=== PATIENT | male | born 1975 | race Caucasian/White ===

== ENCOUNTER 2016-12-13 10:56 | Emergency (ER) | payer SELFPAY ==
[2016-12-13 11:06] VITALS: BP 128/70; PULSE 66; TEMP 98.2; BMI 20.5
--- NOTE | 2016-12-13 11:33 | PDOC ---
History of Present Illness - General Chief Complaint: Weakness Stated Complaint: WEAKNESS Time Seen by Provider: 12/13/16 11:17 History Source: Patient Exam Limitations: No Limitations - History of Present Illness Initial Comments: 12/13/16 11:30 CC severe fatigue x 2-3 day; no NVD; no Fever Timing/Duration: getting worse Severity: mild Associated Symptoms: reports: cough, loss of appetite, malaise. denies: chest pain, diaphoresis, fever/chills, headaches, nausea/vomiting, shortness of breath Past History - Past Medical History Allergies/Adverse Reactions: Allergies Allergy/AdvReac Type Severity Reaction Status Date / Time Penicillins AdvReac Verified 12/13/16 11:02 Asthma: Yes GI Disorders: Yes (gerd) Psychiatric Problems: Yes (SUICIDE ATTEMPT, PTSD) - Immunization History Immunization Up to Date: Yes - Psycho/Social/Smoking Cessation Hx Anxiety: No Suicidal Ideation: No (NOT NOW) Smoking History: Current every day smoker Have you smoked in the past 12 months: Yes Number of Cigarettes Smoked Daily: 10 Cigars Per Day: 0 Information on smoking cessation initiated: No 'Breaking Loose' booklet given: 04/13/16 Hx Alcohol Use: No Drug/Substance Use Hx: No Substance Use Type: Marijuana Review of Systems - Review of Systems Constitutional: Yes: Malaise, Weakness. No: Chills, Fever HEENTM: No: Cataracts, Ear Pain, Throat Pain, Difficulty Swallowing Respiratory: Yes: Cough. No: SOB at Rest, Stridor, Wheezing Cardiac (ROS): Yes: Symptoms Reported ABD/GI: No: Symptoms Reported *Physical Exam - Vital Signs Last Vital Signs Temp Pulse Resp BP Pulse Ox 98.2 F 66 20 128/70 98 12/13/16 11:03 12/13/16 11:03 12/13/16 11:03 12/13/16 11:03 12/13/16 11:03 - Physical Exam General Appearance: No: Appropriately Dressed, Apparent Distress HEENT: positive: Tonsillar Exudate, Tonsillar Erythema, Nasal Congestion, Rhinorrhea. negative: TMs Normal, TM Bulging, TM Dull, TM Erythema, Lesions Neck: positive: Rigid, Lymphadenopathy (R), Lymphadenopathy (L). negative: Tender, Supple Respiratory/Chest: positive: Chest Tender, Lungs Clear, Normal Breath Sounds. negative: Rhonchi, Stridor, Wheezing Cardiovascular: positive: Regular Rhythm, Regular Rate. negative: S1, S2, Murmur ED Treatment Course - LABORATORY CBC & Chemistry Diagram: 12/13/16 11:26 12/13/16 11:26 Medical Decision Making - Medical Decision Making 12/13/16 12:30 advil 40-0mg for fever and pain *DC/Admit/Observation/Transfer Diagnosis at time of Disposition: Acute streptococcal pharyngitis - Discharge Dispostion Disposition: HOME Condition at time of disposition: Stable Admit: No - Patient Instructions Additional Instructions: lots of fluids; gargle; advil for pain - Post Discharge Activity Work/School Note: Back to Work
[2016-12-13 12:00] LABS: BASOPHIL 0.9 % (0-2.0); EOSINOPHIL 0.5 % (0-4.5); MCH 32.5 pg (25.7-33.7); MCHC 33.2 g/dl (32.0-35.9); MEAN CELL VOLUME 98.1 fl (80-96); MEAN PLT VOLUME 7.8 fl (7.5-11.1); NEUTROPHILS 78.4 % (42.8-82.8); PLATELET COUNT 160 K/MM3 (134-434); RDW 13.3 % (11.9-15.9); WHITE BLOOD COUNT 13.9 K/mm3 (4.0-10.0)
[2016-12-13 12:24] LABS: ANION GAP 9 (8-16); CO2 26 mmol/L (21-32); CREATININE 0.8 mg/dL (0.7-1.3); GLUCOSE,RANDOM 85 mg/dL (74-106)
== END 2016-12-13 12:34 | disposition home or self-care (01) ==
LOC: JERFT 10:56
DX: J02.0 Streptococcal pharyngitis (principal); K21.9 Gastro-esophageal reflux disease without esophagitis; J45.909 Unspecified asthma, uncomplicated; F43.10 Post-traumatic stress disorder, unspecified; F17.210 Nicotine dependence, cigarettes, uncomplicated
CPT/HCPCS: 36415; 80048; 85025; 87070; 87077; 87430; 99281-25

== ENCOUNTER 2017-04-05 00:31 | Emergency (ER) | payer SELFPAY ==
--- NOTE | 2017-04-05 01:09 | PDOC ---
History of Present Illness - General Chief Complaint: Sore Throat Stated Complaint: SWOLLEN GLANDS Time Seen by Provider: 04/05/17 01:05 History Source: Patient Exam Limitations: No Limitations - History of Present Illness Initial Comments: 04/05/17 01:07 This is a 41-year-old male who comes in complaining of 12 hours of a sore throat. Patient denies any fever, chills, shortness of breath, neck pain or any other complaints. Patient says he is otherwise healthy and takes no medications on a regular basis. Patient denies any cough, congestion. PAST MEDICAL HISTORY: no significant history PAST SURGICAL HISTORY: no significant history FAMILY HISTORY: no pertinant history SOCIAL HISTORY: Pt lives with family and is employed. MEDICATIONS: reviewed ALLERGIES: As per nursing notes Review of Systems General: No fevers or chills, no weakness, no weight loss HEENT: No change in vision. No sore throat,. No ear pain CardioVascular: No chest pain or shortness of breath Respiratory:No cough, or wheezing. Gastrointestinal: no nausea, vomitting, diarrhea or constipation, No rectal bleeding Genitourinary: No dysuria, hematuria, or frequency Musculoskeletal: No joint or muscle pain or swelling Neurologic: No headache, vertigo, dizziness or loss of consciousness Psychiatric: nor depression Skin: No rashes or easy bruising Endocrine: no increased thirst or abnormal weight change Allergic: no skin or latex allergy All other systems reviewed and normal GENERAL: The patient is awake, alert, and fully oriented, in no acute distress. HEAD: Normal with no signs of trauma. THROAT:There is some mild erythema of the posterior oropharynx, tonsils are otherwise normal there is no exudate NECK: There is no submandibular lymphadenopathy then neck is supple and there is no meningeal signs. EYES: Pupils equal, round and reactive to light, extraocular movements intact, sclera anicteric, conjunctiva clear. EXTREMITIES: Normal range of motion, no edema. NEUROLOGICAL: Normal speech, normal gait. grossly intact PSYCH: Normal mood, normal affect. SKIN: Warm, Dry, normal turgor, no rashes or lesions noted. 04/05/17 01:09 Assessment and plan: This is a healthy 41-year-old male who comes in complaining of 12 hours of sore throat. Patient did have some mild erythema on exam otherwise his exam was normal including no fever, no lymphadenopathy and no upper respiratory tract symptoms. Patient was given Tylenol for his sore throat and told he could continue the Tylenol as needed for pain. Patient discharged and will follow-up with his doctor. Past History - Past Medical History Allergies/Adverse Reactions: Allergies Allergy/AdvReac Type Severity Reaction Status Date / Time Penicillins AdvReac Verified 04/05/17 00:48 Home Medications: Ambulatory Orders NK [No Known Home Medication] 04/05/17 Asthma: Yes GI Disorders: Yes (gerd) Psychiatric Problems: Yes (SUICIDE ATTEMPT, PTSD) - Immunization History Immunization Up to Date: Yes - Suicide/Smoking/Psychosocial Hx Smoking History: Current every day smoker Have you smoked in the past 12 months: Yes Number of Cigarettes Smoked Daily: 20 Cigars Per Day: 0 'Breaking Loose' booklet given: 04/13/16 Hx Alcohol Use: No Drug/Substance Use Hx: No Substance Use Type: Marijuana *DC/Admit/Observation/Transfer Diagnosis at time of Disposition: Pharyngitis Qualifiers: Pharyngitis/tonsillitis etiology: unspecified etiology Qualified Code(s): J02.9 - Acute pharyngitis, unspecified - Discharge Dispostion Disposition: HOME Condition at time of disposition: Good - Referrals - Patient Instructions Additional Instructions: Tylenol or Motrin as needed for pain or fevers Return to the emergency department immediately with ANY new, persistent or worsening symptoms. Continue any medications as previously prescribed by your physician. You should follow up with your primary doctor as soon as possible regarding today's emergency department visit. . Please make sure your doctor reviews the results of your emergency evaluation. Thank you for coming to the Emergency Department today for your care. It was a pleasure to see you today. Please note that your evaluation is INCOMPLETE until you follow-up with your doctor. . - Post Discharge Activity
[2017-04-05 02:01] VITALS: BP 100/67; PULSE 92; TEMP 98.9; BMI 30.8
[2017-04-05] MEDS ORDERED: ACETAMINOPHEN 325 MG TABLET (FP) PO ONE (02:01)
[2017-04-05] MEDS ORDERED: ACETAMINOPHEN 325 MG TABLET (FP) ONE (02:03)
== END 2017-04-05 02:16 | disposition home or self-care (01) ==
LOC: FER 00:31
DX: J02.9 Acute pharyngitis, unspecified (principal); J45.909 Unspecified asthma, uncomplicated; K21.9 Gastro-esophageal reflux disease without esophagitis; F17.210 Nicotine dependence, cigarettes, uncomplicated; F43.10 Post-traumatic stress disorder, unspecified
CPT/HCPCS: 99281-25

== ENCOUNTER 2017-04-07 15:27 | Emergency (ER) | payer SELFPAY ==
[2017-04-07 15:45] VITALS: BP 114/58; PULSE 90; TEMP 98.3; BMI 21.2
--- NOTE | 2017-04-07 15:46 | PDOC ---
Rapid Medical Evaluation Time Seen by Provider: 04/07/17 15:41 Medical Evaluation: Allergies Allergy/AdvReac Type Severity Reaction Status Date / Time Penicillins AdvReac Verified 04/05/17 00:48 04/07/17 15:41 I performed a brief in-person evaluation of this patient. The patient presents with a chief complaint of: sorethroat, weakness and toothache x 3 days Patient states seen in 2 other emergency room, where they found negative strep and influenza swabs. States feeling better but with tooth infection and decrease appetite. Pertinent physical exam findings: NAD no swelling of face, speech clear unlabored breathing The patient will proceed to the Ed for further evaluation
--- NOTE | 2017-04-07 16:42 | PDOC ---
History of Present Illness - General Chief Complaint: Lightheaded Stated Complaint: WEAK/DIZZY/SORE THROAT Time Seen by Provider: 04/07/17 15:41 History Source: Patient Exam Limitations: No Limitations - History of Present Illness Initial Comments: 04/07/17 16:39 Patient is a [41-year-old male with history of depression, asthma, GERD. Patient here for evaluation of dental decay and pain to the left lower teeth, recently had a sore throat, was strep and influenza tested and negative. Was seen in three emergency rooms over the last four days. Is requesting antibiotics for tooth pain and abscess. Denies fever. No difficulty swallowing , denies chest pain or shortness of breath ] Past Medical History: [Denies]. Allergies: No known allergies Medications: [See medication list] Family History: Non-contributory Social History: Denies smoking, alcohol use, or IVDU Review of Systems GENERAL/CONSTITUTIONAL: [No fever or chills. No weakness. No weight change.] HEAD, EYES, EARS, NOSE AND THROAT: [No change in vision. No ear pain or discharge. No sore throat. Dental decay, fractured tooth with erythematous gumline at left lower jaw. ] CARDIOVASCULAR: [No chest pain or shortness of breath.] RESPIRATORY: [No cough, wheezing, or hemoptysis.] GASTROINTESTINAL: [No nausea, vomiting, diarrhea or constipation. No rectal bleeding.] GENITOURINARY: [No dysuria, frequency, or change in urination.] MUSCULOSKELETAL: [No joint or muscle swelling or pain. No neck or back pain.] SKIN AND BREASTS: [No rash or easy bruising.] NEUROLOGIC: [No headache, vertigo, loss of consciousness, or loss of sensation.] PSYCHIATRIC: [No depression or anxiety.] ENDOCRINE: [No increased thirst. No abnormal weight change.] HEMATOLOGIC/LYMPHATIC: [No anemia, easy bleeding, or history of blood clots.] ALLERGIC/IMMUNOLOGIC: [No hives or skin allergy. No latex allergy.] Physical Exam: GENERAL: [The patient is awake, alert, and fully oriented, in no acute distress. ] HEAD: [Normal with no signs of trauma.] EYES: [Pupils equal, round and reactive to light, extraocular movements intact, sclera anicteric, conjunctiva clear.] ENT: [Ears normal, nares patent, oropharynx clear without exudates. Moist mucous membranes. No uvula deviation. Dental decay, cracked 18, 19, 20. Has dental putty in place, erythema to the gumline. ] NECK: [Normal range of motion, supple without lymphadenopathy, JVD, or masses.] LUNGS: [Breath sounds equal, clear to auscultation bilaterally. No wheezes, and no crackles.] HEART: [Regular rate and rhythm, normal S1 and S2 without murmur, rub or gallop. ] ABDOMEN: [Soft, nontender, normoactive bowel sounds. No guarding, no rebound. No masses. No bruising or abrasions] MUSCULOSKELETAL: [Normal range of motion, no edema. No clubbing or cyanosis. No cords, erythema, or tenderness. No CVA Tenderness with fist.] NEUROLOGICAL: [Cranial nerves II through XII grossly intact. Normal speech, normal gait.] SKIN: [Warm, Dry, normal turgor, no rashes or lesions noted.] Past History - Past Medical History Allergies/Adverse Reactions: Allergies Allergy/AdvReac Type Severity Reaction Status Date / Time Penicillins AdvReac Verified 04/07/17 15:41 Home Medications: Ambulatory Orders Clindamycin [Cleocin -] 300 mg PO TID #30 capsule 04/07/17 Asthma: Yes COPD: No GI Disorders: Yes (gerd) Psychiatric Problems: Yes (SUICIDE ATTEMPT, PTSD) - Immunization History Immunization Up to Date: Yes - Suicide/Smoking/Psychosocial Hx Smoking History: Current every day smoker Have you smoked in the past 12 months: Yes Number of Cigarettes Smoked Daily: 20 Cigars Per Day: 0 Information on smoking cessation initiated: No 'Breaking Loose' booklet given: 04/13/16 Hx Alcohol Use: No Drug/Substance Use Hx: No Substance Use Type: Marijuana *Physical Exam - Vital Signs Last Vital Signs Temp Pulse Resp BP Pulse Ox 98.3 F 90 19 114/58 99 04/07/17 15:42 04/07/17 15:42 04/07/17 15:42 04/07/17 15:42 04/07/17 15:42 Medical Decision Making - Medical Decision Making 04/07/17 19:37 A/P : Patient with significant dental decay, there is fractured tooth to left lower side 18, 19 and 20 with dental putty in place erythema gumline cannot rule out abscess will DC patient on clindamycin, Tylenol and Motrin for pain. I discussed the physical exam findings, ancillary test results and final diagnoses with the patient. I answered all of the patient's questions. The patient was satisfied with the care received and felt comfortable with the discharge plan and treatment plan. The patient will call to arrange follow-up and will return to the Emergency Department with any new, persistent or worsening symptoms. *DC/Admit/Observation/Transfer Diagnosis at time of Disposition: Dental abscess, Dental decay - Discharge Dispostion Disposition: HOME Condition at time of disposition: Stable Admit: No - Prescriptions Prescriptions: Clindamycin [Cleocin -] 300 mg PO TID #30 capsule - Referrals - Patient Instructions Printed Discharge Instructions: DI for Tooth Decay Additional Instructions: Please follow-up with your dentist may take Motrin as needed for pain If any difficulty swallowing, fever, or any other concerns return to the ER - Post Discharge Activity
== END 2017-04-07 16:48 | disposition home or self-care (01) ==
LOC: JER 15:27
DX: K02.9 Dental caries, unspecified (principal); K04.7 Periapical abscess without sinus
CPT/HCPCS: 99281-25

== ENCOUNTER 2017-11-19 17:06 | Emergency (ER) | payer SELFPAY ==
[2017-11-19 17:42] VITALS: BP 99/70; PULSE 106; TEMP 99.9; BMI 19.2
[2017-11-19] MEDS ORDERED: SODIUM CHLORIDE 1,000 ML IV STA (18:03)
[2017-11-19] MEDS ORDERED: ONDANSETRON 4 MG/2 ML VIAL IVPUSH STA (18:03)
[2017-11-19 19:14] LABS: BASO % 0.4 % (0-2.0); EOS % 1.2 % (0-4.5); HEMATOCRIT 49.1 % (35.4-49); HEMOGLOBIN 16.5 GM/dL (11.7-16.9); LYMPH % 12.2 % (8-40); MCHC 33.6 g/dl (32.0-35.9); MEAN CELL VOLUME 98.1 fl (80-96); MEAN PLT VOLUME 7.6 fl (7.5-11.1); MONO % 8.5 % (3.8-10.2); NEUT % 77.7 % (42.8-82.8); PLATELET COUNT 156 K/MM3 (134-434); RDW 13.5 % (11.9-15.9); WHITE BLOOD COUNT 8.4 K/mm3 (4.0-10.0)
[2017-11-19 19:33] LABS: ALBUMIN 3.7 g/dl (3.4-5.0); ANION GAP 6 (8-16); BILIRUBIN,TOTAL 0.6 mg/dL (0.2-1.0); BLOOD UREA NITROGEN 14 mg/dL (7-18); CALCIUM 8.6 mg/dL (8.5-10.1); CHLORIDE 106 mmol/L (98-107); CO2 29 mmol/L (21-32); CREATININE 0.8 mg/dL (0.7-1.3); GLUCOSE,RANDOM 76 mg/dL (74-106); LIPASE 96 U/L (73-393); POTASSIUM 4.5 mmol/L (3.5-5.1); SGOT/AST 19 U/L (15-37); SGPT/ALT 24 U/L (12-78); SODIUM 141 mmol/L (136-145)
[2017-11-19 19:34] LABS: ALK PHOS 77 U/L (45-117)
--- NOTE | 2017-11-19 19:45 | PDOC ---
History of Present Illness <SarabjitNormajhon Kelly - Last Filed: 11/19/17 19:44> - General History Source: Patient Exam Limitations: No Limitations - History of Present Illness Initial Comments: 11/19/17 20:27 The patient is a 42 year old male with a significant past medical history of asthma, GERD, PTSD, depression who presents to the emergency department complaining of 1 day of vomiting and diarrhea. The patient reports 3 episodes of non-bloody vomiting yesterday with none today and 10 episodes of watery diarrhea. He reports taking Pepto-bismol today which subsided his GI symptoms, and now has a normal appetite. Patient endorses nausea and fever with chills. The patient notes that he has been walking outside more than usual since recently losing his car. He also notes that he does not have a healthy diet, often eats fast food although he has a sensitive stomach. The patient reports sick contact at home, girlfriend has similar symptoms with the exception of diarrhea. Denies chest pain, shortness of breath, headache, and dizziness. Denies urinary/bowel changes. Allergies: penicillins Past surgical history: none reported Social history: 20 years of daily marijuana use. Tobacco use (1 ppd). PCP: unknown <Isa Deluca - Last Filed: 11/19/17 20:36> - General Chief Complaint: Nausea/Vomiting Stated Complaint: NAUSEA AND VOMITING Time Seen by Provider: 11/19/17 17:43 Past History - Past Medical History Asthma: Yes COPD: No GI Disorders: Yes (gerd) Psychiatric Problems: Yes (SUICIDE ATTEMPT, PTSD) - Immunization History Immunization Up to Date: Yes - Suicide/Smoking/Psychosocial Hx Smoking History: Current every day smoker Have you smoked in the past 12 months: Yes Number of Cigarettes Smoked Daily: 20 Cigars Per Day: 0 Information on smoking cessation initiated: No 'Breaking Loose' booklet given: 04/13/16 Hx Alcohol Use: No Drug/Substance Use Hx: No Substance Use Type: Marijuana <Norma Whipple - Last Filed: 11/19/17 19:44> <Isa Deluca - Last Filed: 11/19/17 20:36> - Past Medical History Allergies/Adverse Reactions: Allergies Allergy/AdvReac Type Severity Reaction Status Date / Time Penicillins AdvReac Verified 11/19/17 17:42 Home Medications: Ambulatory Orders NK [No Known Home Medication] 11/19/17 Review of Systems - Review of Systems Able to Perform ROS?: Yes Comments:: 11/19/17 20:32 CONSTITUTIONAL: Present: subjective fever, chills Absent: fatigue EYES: Absent: visual changes ENT: Absent: ear pain, no sore throat CARDIOVASCULAR: Absent: chest pain, no palpitations RESPIRATORY: Absent: cough, no SOB GI: Present: nausea, vomiting, diarrhea Absent: abdominal pain, no constipation GENITOURINARY: Absent: dysuria, no frequency, no hematuria MUSKULOSKELETAL: Absent: back pain, no arthralgia, no myalgia SKIN: Absent: rash NEURO: Absent: headache <Isa Deluca - Last Filed: 11/19/17 20:36> *Physical Exam - Vital Signs Last Vital Signs Temp Pulse Resp BP Pulse Ox 99.9 F H 106 H 16 99/70 99 11/19/17 17:10 11/19/17 17:10 11/19/17 17:10 11/19/17 17:10 11/19/17 19:03 <Norma Whipple - Last Filed: 11/19/17 19:44> - Vital Signs Last Vital Signs Temp Pulse Resp BP Pulse Ox 99.9 F H 106 H 16 99/70 99 11/19/17 17:10 11/19/17 17:10 11/19/17 17:10 11/19/17 17:10 11/19/17 19:03 - Physical Exam Comments: 11/19/17 20:34 GENERAL: Well-appearing, well-nourished. No apparent distress. HEENT: Normocephalic, atraumatic. PERRL, EOM intact. CARDIOVASCULAR: Normal S1, S2. Regular rate and rhythm. PULMONARY: Clear to auscultation bilaterally. ABDOMEN: Soft, non-distended, non-tender. EXTREMITIES: Normal ROM in all four extremities. No gross deformities. SKIN: Warm, dry. No rash NEUROLOGICAL: No focal neurological deficits. <Isa Deluca - Last Filed: 11/19/17 20:36> ED Treatment Course - LABORATORY CBC & Chemistry Diagram: 11/19/17 19:00 11/19/17 19:00 - ADDITIONAL ORDERS Additional order review: Laboratory Results 11/19/17 19:00 Sodium 141 Potassium 4.5 Chloride 106 Carbon Dioxide 29 Anion Gap 6 L BUN 14 Creatinine 0.8 Creat Clearance w eGFR > 60 Random Glucose 76 Calcium 8.6 Total Bilirubin 0.6 AST 19 ALT 24 Alkaline Phosphatase 77 Total Protein 7.0 Albumin 3.7 Lipase 96 11/19/17 19:00 RBC 5.00 MCV 98.1 H MCHC 33.6 RDW 13.5 MPV 7.6 Neutrophils % 77.7 Lymphocytes % 12.2 Monocytes % 8.5 Eosinophils % 1.2 D Basophils % 0.4 - Medications Given in the ED: ED Medications Discontinued Medications Generic Name Dose Route Start Last Admin Trade Name Freq PRN Reason Stop Dose Admin Sodium Chloride 1,000 mls @ 1,000 mls/hr 11/19/17 18:03 11/19/17 18:15 Normal Saline - IV 11/19/17 19:02 1,000 mls/hr ASDIR STA Administration Ondansetron HCl 4 mg 11/19/17 18:03 11/19/17 18:30 Zofran Injection IVPUSH 11/19/17 18:04 4 mg ONCE STA Administration <Norma Whipple - Last Filed: 11/19/17 19:44> - LABORATORY CBC & Chemistry Diagram: 11/19/17 19:00 11/19/17 19:00 - ADDITIONAL ORDERS Additional order review: Laboratory Results 11/19/17 19:00 Sodium 141 Potassium 4.5 Chloride 106 Carbon Dioxide 29 Anion Gap 6 L BUN 14 Creatinine 0.8 Creat Clearance w eGFR > 60 Random Glucose 76 Calcium 8.6 Total Bilirubin 0.6 AST 19 ALT 24 Alkaline Phosphatase 77 Total Protein 7.0 Albumin 3.7 Lipase 96 11/19/17 19:00 RBC 5.00 MCV 98.1 H MCHC 33.6 RDW 13.5 MPV 7.6 Neutrophils % 77.7 Lymphocytes % 12.2 Monocytes % 8.5 Eosinophils % 1.2 D Basophils % 0.4 - Medications Given in the ED: ED Medications Discontinued Medications Generic Name Dose Route Start Last Admin Trade Name Freq PRN Reason Stop Dose Admin Sodium Chloride 1,000 mls @ 1,000 mls/hr 11/19/17 18:03 11/19/17 18:15 Normal Saline - IV 11/19/17 19:02 1,000 mls/hr ASDIR STA Administration Ondansetron HCl 4 mg 11/19/17 18:03 11/19/17 18:30 Zofran Injection IVPUSH 11/19/17 18:04 4 mg ONCE STA Administration <Isa Deluca - Last Filed: 11/19/17 20:36> *DC/Admit/Observation/Transfer <Norma Whipple - Last Filed: 11/19/17 19:44> - Attestations Scribe Attestion: 11/19/17 20:35 Documentation prepared by Isa Deluca, acting as medical collections for Norma Whipple MD. <Isa Deluca - Last Filed: 11/19/17 20:36> Diagnosis at time of Disposition: Gastroenteritis - Discharge Dispostion Disposition: HOME Condition at time of disposition: Stable - Patient Instructions Printed Discharge Instructions: DI for Viral Gastroenteritis -- Adult Additional Instructions: please advance your diet as tolerated
== END 2017-11-19 19:52 | disposition home or self-care (01) ==
LOC: JER 17:06
PROC: 3E0337Z Introduction of Electrolytic and Water Balance Substance into Peripheral Vein, Percutaneous Approach (ICD-10-PCS; principal; 2017-11-19)
PROC: 3E033GC Introduction of Other Therapeutic Substance into Peripheral Vein, Percutaneous Approach (ICD-10-PCS; 2017-11-19)
DX: K52.9 Noninfective gastroenteritis and colitis, unspecified (principal); K21.9 Gastro-esophageal reflux disease without esophagitis; J45.909 Unspecified asthma, uncomplicated; F43.10 Post-traumatic stress disorder, unspecified; F32.9 Major depressive disorder, single episode, unspecified; Z91.5 Personal history of self-harm
CPT/HCPCS: 36415; 80053; 83690; 85025; 96361; 96374; 99282-25; J7030

== ENCOUNTER 2018-04-25 01:41 | Emergency (ER) | payer OTHER ==
[2018-04-25 02:20] VITALS: BP 114/79; PULSE 97; TEMP 98; BMI 20.5
--- NOTE | 2018-04-25 03:19 | PDOC ---
History of Present Illness - General Chief Complaint: Toothache Stated Complaint: TOOTHACHE Time Seen by Provider: 04/25/18 03:19 History Source: Patient, Family - History of Present Illness Initial Comments: 04/25/18 03:49 42 year old male c/o tooth decay and pain c/o upper incisor tooth decay c/o no relief with pain motrin at home. patient poor dentition with multiple dental caries. n o facial swelling fever noted 04/25/18 04:53 Past History - Past Medical History Allergies/Adverse Reactions: Allergies Allergy/AdvReac Type Severity Reaction Status Date / Time Penicillins AdvReac Verified 04/25/18 02:20 Home Medications: Ambulatory Orders Amoxicillin/Potassium Clav [Augmentin 875-125 Tablet] 1 each PO BID #20 tablet 04/25/18 Oxycodone HCl/Acetaminophen [Percocet 5-325 mg Tablet] 1 tab PO Q6H PRN #4 tablet MDD 4 04/25/18 Asthma: Yes COPD: No GI Disorders: Yes (gerd) Psychiatric Problems: Yes (SUICIDE ATTEMPT, PTSD) - Immunization History Immunization Up to Date: Yes - Suicide/Smoking/Psychosocial Hx Smoking History: Smoker current status UNK Have you smoked in the past 12 months: No Number of Cigarettes Smoked Daily: 20 Cigars Per Day: 0 Information on smoking cessation initiated: No 'Breaking Loose' booklet given: 04/13/16 Hx Alcohol Use: No Drug/Substance Use Hx: No Substance Use Type: Marijuana *Physical Exam - Vital Signs Last Vital Signs Temp Pulse Resp BP Pulse Ox 98 F 97 H 18 114/79 97 04/25/18 01:41 04/25/18 01:41 04/25/18 01:41 04/25/18 01:41 04/25/18 01:41 - Physical Exam General Appearance: Yes: Appropriately Dressed HEENT: positive: Other (multiple tooth decay) Moderate Sedation - Procedure Monitoring Vital Signs: Procedure Monitoring Vital Signs Temperature 98 F 04/25/18 01:41 Pulse Rate 97 H 04/25/18 01:41 Respiratory Rate 18 04/25/18 01:41 Blood Pressure 114/79 04/25/18 01:41 O2 Sat by Pulse Oximetry (%) 97 04/25/18 01:41 *DC/Admit/Observation/Transfer Diagnosis at time of Disposition: Infected dental caries - Discharge Dispostion Disposition: HOME Condition at time of disposition: Fair - Prescriptions Prescriptions: Amoxicillin/Potassium Clav [Augmentin 875-125 Tablet] 1 each PO BID #20 tablet Oxycodone HCl/Acetaminophen [Percocet 5-325 mg Tablet] 1 tab PO Q6H PRN #4 tablet MDD 4 PRN Reason: Pain Level 6-10 - Referrals - Patient Instructions Printed Discharge Instructions: DI for Tooth Decay Additional Instructions: please follow up with your dentist as soon as possible take ibuprofen for moderate pain take percocet as prescribed for paim - Post Discharge Activity
[2018-04-25] MEDS ORDERED: AMOX TR/POT CLAV 875MG/125MG TABLETS (FP) PO ONE (03:35)
[2018-04-25] MEDS ORDERED: AMOX TR/POT CLAV 875MG/125MG TABLETS (FP) ONE (04:27)
== END 2018-04-25 05:02 | disposition home or self-care (01) ==
LOC: JER 01:41
DX: K02.51 Dental caries on pit and fissure surface limited to enamel (principal); K02.9 Dental caries, unspecified
CPT/HCPCS: 99282-25

== ENCOUNTER 2018-05-05 04:17 | Emergency (ER) | payer OTHER ==
[2018-05-05 04:24] VITALS: BP 142/81; PULSE 98; TEMP 97.6; BMI 26.4
[2018-05-05] MEDS ORDERED: BUPIVACAINE HCL 0.25% 125 MG/50 ML VIAL INF ONE (05:03)
[2018-05-05] MEDS ORDERED: BUPIVACAINE HCL/PF 0.5% (5MG/ML) 10 ML VIAL ONE (05:04)
--- NOTE | 2018-05-05 05:08 | PDOC ---
History of Present Illness - General Chief Complaint: Toothache Stated Complaint: TOOTHACHE History Source: Patient Exam Limitations: No Limitations - History of Present Illness Initial Comments: 05/05/18 05:02 42YOM with h/o dental caries with multiple tooth extractions, seen here in the ED before with dentalgia and dental infections, most recently seen on 04/25/18 and placed on Augmentin which he took and finished, still having pain mild swelling to the area. He denies f/c/n/v/d/c, headache, sinus pain, drooling, lock jaw, nasal drainage, gingival drainage, etc. This tooth is the site of dental caries per his report. He has an appointment to see his dental implant clinic on Monday. States he will not be able to see a dentist on Monday because they only take walk-ins until 10 am and he has a social security appointment at 9 am. Past History - Past Medical History Allergies/Adverse Reactions: Allergies Allergy/AdvReac Type Severity Reaction Status Date / Time Penicillins AdvReac Verified 05/05/18 04:22 Home Medications: Ambulatory Orders Oxycodone HCl/Acetaminophen [Percocet 5-325 mg Tablet] 1 tab PO Q6H PRN #4 tablet MDD 4 04/25/18 Clindamycin HCl 450 mg PO BID #14 capsule 05/05/18 Asthma: Yes COPD: No GI Disorders: Yes (gerd) Psychiatric Problems: Yes (SUICIDE ATTEMPT, PTSD) - Immunization History Immunization Up to Date: Yes - Suicide/Smoking/Psychosocial Hx Smoking History: Never smoked Have you smoked in the past 12 months: No Number of Cigarettes Smoked Daily: 20 Cigars Per Day: 0 Information on smoking cessation initiated: No 'Breaking Loose' booklet given: 04/13/16 Hx Alcohol Use: No Drug/Substance Use Hx: No Substance Use Type: Marijuana Review of Systems - Review of Systems Able to Perform ROS?: Yes *Physical Exam - Vital Signs Last Vital Signs Temp Pulse Resp BP Pulse Ox 97.6 F 98 H 18 142/81 98 05/05/18 04:22 05/05/18 04:22 05/05/18 04:22 05/05/18 04:22 05/05/18 04:22 Moderate Sedation - Procedure Monitoring Vital Signs: Procedure Monitoring Vital Signs Temperature 97.6 F 05/05/18 04:22 Pulse Rate 98 H 05/05/18 04:22 Respiratory Rate 18 05/05/18 04:22 Blood Pressure 142/81 05/05/18 04:22 O2 Sat by Pulse Oximetry (%) 98 05/05/18 04:22 Medical Decision Making - Medical Decision Making 05/05/18 05:05 Pt p/w dental pain and swelling at the site of a decaying tooth #7. Initial Vital Signs Temp Pulse Resp BP Pulse Ox 97.6 F 98 H 18 142/81 98 05/05/18 04:22 05/05/18 04:22 05/05/18 04:22 05/05/18 04:22 05/05/18 04:22 Exam: As noted in Physical Exam section. DDX IBNLT: dentalgia, dental fracture, dental caries, dental abscess (periapical ), gingivitis, Andrea angina, parotitis, W/U ordered: None TX ordered: Bupivacaine 0.5% without epi (we have no bupivacaine with epi in the xis) dental block. Right anterior superior alveolar nerve block done with 1 cc 0.5% bupivacaine, tolerated well, good relief. 05/05/18 05:39 This patient has gotten significant relief of symptoms while in the ED. On last reassessment, vitals are wnl, pain is reasonably controlled, and exam is benign. Workup is not concerning for emergency-level pathology at this time. This patient is appropriate for discharge with close outpatient follow up. They are comfortable with this plan and will follow up with their dentist in 1- 3 days. Specific return precautions are discussed and they will come back to the ER if necessary. *DC/Admit/Observation/Transfer Diagnosis at time of Disposition: Dental infection - Discharge Dispostion Disposition: HOME Condition at time of disposition: Stable Decision to Admit order: No - Prescriptions Prescriptions: Clindamycin HCl 450 mg PO BID #14 capsule - Referrals Referrals: Reed Morris MD [Primary Care Provider] - - Patient Instructions Printed Discharge Instructions: DI for Dental Pain Additional Instructions: You were seen in the ER for dental pain and swelling. We did an exam and a nerve block to control your pain, which helped with your symptoms. We gave you a dose of clindamycin here in the ED and sent the remaining prescription to your pharmacy. Please grain picker and take the clindamycin prescription as directed. After our assessment, we do not believe you are having a medical emergency at this time, and we believe you are safe to go home. Please follow up with your [facility]. Call their clinic as soon as possible, tell them you were seen in the ER, and tell them you need an appointment. If you have any new or worsening symptoms, especially worsened dental pain or swelling, evidence of infection, inability to swallow, difficulty breathing, fever, chills, or other symptoms, please come back to the ER at any time (24 hours a day). If you are having severe or life threatening symptoms, or symptoms that make it unsafe to drive or have someone drive you, please call 911. Take Tylenol and Motrin: Tylenol 650 mg first Take Motrin 600 mg 3 hours later Take Tylenol 650 mg 3 hours later Take Motrin 600 mg 3 hours later Etc. - Post Discharge Activity
--- NOTE | 2018-05-05 05:20 | PDOC ---
Attending Attestation - Resident Resident Name: JosefMeme - ED Attending Attestation I have performed the following: I have examined & evaluated the patient, The case was reviewed & discussed with the resident, I agree w/resident's findings & plan - HPI HPI: 05/06/18 21:36 Pt comes with poor dentition and broken teeth and pain in the gingiva. He is requesting narcotics. - Physicial Exam PE: 05/06/18 21:37 Agree with resident exam. Pt has broken teeth and gum pain, but no swelling, no pus in the mouth or buccal swelling or inflammation. 05/06/18 21:38 Pt has no fever. Pt will be sent home - Medical Decision Making 05/06/18 21:45 Pt is stable to follow with dental as an outpatient; he had a local gingival injection that controlled his pain.
[2018-05-05] MEDS ORDERED: CLINDAMYCIN HCL 150 MG CAPSULE (FP) PO ONE (05:34)
[2018-05-05] MEDS ORDERED: ACETAMINOPHEN 325 MG TABLET (FP) ONE (05:42)
[2018-05-05] MEDS ORDERED: CLINDAMYCIN HCL 150 MG CAPSULE (FP) ONE (05:42)
[2018-05-05] MEDS ORDERED: ACETAMINOPHEN 500 MG TABLET (FP) PO ONE (05:42)
== END 2018-05-05 05:57 | disposition home or self-care (01) ==
LOC: JER 04:17
PROC: 3E0D3BZ Introduction of Anesthetic Agent into Mouth and Pharynx, Percutaneous Approach (ICD-10-PCS; principal; 2018-05-05)
DX: K04.7 Periapical abscess without sinus (principal); J45.909 Unspecified asthma, uncomplicated; K21.9 Gastro-esophageal reflux disease without esophagitis; Z86.59 Personal history of other mental and behavioral disorders
CPT/HCPCS: 99282-25

== ENCOUNTER 2018-11-29 00:06 | Emergency (ER) | payer OTHER ==
--- NOTE | 2018-11-29 00:54 | PDOC ---
History of Present Illness - General Stated Complaint: LEFT ELBOW PAIN Time Seen by Provider: 11/29/18 00:51 - History of Present Illness Initial Comments: 11/29/18 00:52 CHIEF COMPLAINT: left elbow pain HISTORY OF PRESENT ILLNESS: 43 yo M presents to ED with left elbow pain since this evening at work while carrying lockers. 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 He states this is an old work injury that he reaggravated today because "I never let it heal." No recent travel or sick contacts. PAST MEDICAL HISTORY: Denies past medical history FAMILY HISTORY: Denies SOCIAL HISTORY: .Denies tobacco, alcohol, illicit drug use. SURGICAL HISTORY: Denies ALLERGIES: PCN REVIEW OF SYSTEMS General/Constitutional: Denies fever or chills. Denies weakness, weight change. HEENT: Denies change in vision. Denies ear pain or discharge. Denies sore throat. Cardiovascular: Denies chest pain or shortness of breath. Respiratory: Denies cough, wheezing, or hemoptysis. Gastrointestinal: Denies nausea, vomiting, diarrhea or constipation. Denies rectal bleeding. Genitourinary: Denies dysuria, frequency, or change in urination. Musculoskeletal: Left elbow pain. Skin and breasts: Denies rash or easy bruising. Neurologic: Denies headache, vertigo, loss of consciousness, or loss of sensation. PHYSICAL EXAM General Appearance: Well-appearing, appropriately dressed. No apparent distress. HEENT: EOMI, PERRLA, normal ENT inspection, normal voice, TMs normal, pharynx normal. No conjunctival pallor. No photophobia, scleral icterus. Neck: Supple. Trachea midline. No tenderness, rigidity, carotid bruit, stridor , lymphadenopathy, or thyromegaly. Respiratory/Chest: Lungs CTAB. No shortness of breath, chest tenderness, respiratory distress, accessory muscle use. No crackles, rales, rhonchi, stridor , wheezing, dullness Cardiovascular: RRR. S1, S2. No JVD, murmur, bradycardia, tachycardia. Vascular Pulses: Dorsalis-Pedis (R): 2+, Dorsalis-Pedis (L): 2+ Gastrointestinal/Abdominal: Normal bowel sounds. Abdomen soft, non-distended. No tenderness or rebound tenderness. No organomegaly, pulsatile mass, guarding , hernia, hepatomegaly, splenomegaly. Musculoskeletal/Extremities: Normal inspection. FROM of all extremities, normal capillary refill. Pelvis Stable. No CVA tenderness. No tenderness to extremities, pedal edema, swelling, erythema or deformity. Integumentary: Appropriate color, dry, warm. No cyanosis, erythema, jaundice or rash Neurologic: cigar head pegger II-XII intact. Fully oriented, alert. Appropriate mood/affect. Motor strength 5/5. No appreciable EOM palsy, facial droop or sensory deficit. 11/29/18 01:05 Past History - Past Medical History Allergies/Adverse Reactions: Allergies Allergy/AdvReac Type Severity Reaction Status Date / Time Penicillins AdvReac Verified 05/05/18 04:22 Home Medications: Ambulatory Orders Oxycodone HCl/Acetaminophen [Percocet 5-325 mg Tablet] 1 tab PO Q6H PRN #4 tablet MDD 4 04/25/18 Clindamycin HCl 450 mg PO BID #14 capsule 05/05/18 Diclofenac Sodium 75 mg PO BID #20 tablet. 11/29/18 Asthma: Yes COPD: No GI Disorders: Yes (gerd) Psychiatric Problems: Yes (SUICIDE ATTEMPT, PTSD) - Immunization History Immunization Up to Date: Yes - Suicide/Smoking/Psychosocial Hx Smoking History: Never smoked Have you smoked in the past 12 months: No Number of Cigarettes Smoked Daily: 20 Cigars Per Day: 0 'Breaking Loose' booklet given: 04/13/16 Hx Alcohol Use: No Drug/Substance Use Hx: No Substance Use Type: Marijuana Medical Decision Making - Medical Decision Making 11/29/18 00:54 43 yo M presents to ED with left elbow pain since this evening at work while carrying lockers. Exam unremarkable, patient will full ROM to elbow. Toradol, symone bandage, sling. Refer to ortho. *DC/Admit/Observation/Transfer Diagnosis at time of Disposition: Left elbow pain - Discharge Dispostion Disposition: HOME Condition at time of disposition: Stable Decision to Admit order: No - Prescriptions Prescriptions: Diclofenac Sodium 75 mg PO BID #20 tablet.dr - Referrals Referrals: Andrea Gilbert MD [Staff Physician] - - Patient Instructions Printed Discharge Instructions: DI for Elbow Pain - Post Discharge Activity Forms/Work/School Notes: Back to Work
[2018-11-29] MEDS ORDERED: KETOROLAC TROMETHAMINE 30 MG/1 ML VIAL IM ONE (00:55)
[2018-11-29] MEDS ORDERED: KETOROLAC TROMETHAMINE 30 MG/1 ML VIAL ONE (01:23)
== END 2018-11-29 02:38 | disposition home or self-care (01) ==
LOC: JER 00:06
PROC: 3E0233Z Introduction of Anti-inflammatory into Muscle, Percutaneous Approach (ICD-10-PCS; principal; 2018-11-29)
DX: M25.522 Pain in left elbow (principal); J45.909 Unspecified asthma, uncomplicated; K21.9 Gastro-esophageal reflux disease without esophagitis; F43.10 Post-traumatic stress disorder, unspecified; Z87.891 Personal history of nicotine dependence; Z59.0 Homelessness
CPT/HCPCS: 99281-25

== ENCOUNTER 2018-12-24 21:35 | Emergency (ER) | payer OTHER ==
--- NOTE | 2018-12-24 21:55 | PDOC ---
Rapid Medical Evaluation Time Seen by Provider: 12/24/18 21:53 Medical Evaluation: Allergies Allergy/AdvReac Type Severity Reaction Status Date / Time Penicillins AdvReac Verified 11/29/18 01:55 12/24/18 21:53 CC: right eye redness PE: EOMI. Subconjunctival hemorrhage Orders: nothing Patient will proceed to ED for continued evaluation. Discharge Disposition - Diagnosis Subconjunctival bleed - Referrals - Patient Instructions - Post Discharge Activity
[2018-12-24 21:58] VITALS: BP 110/70; PULSE 77; TEMP 98.2; BMI 27.1
--- NOTE | 2018-12-24 22:20 | PDOC ---
History of Present Illness - General Chief Complaint: Eye Problem Stated Complaint: EYE PROBLEM Time Seen by Provider: 12/24/18 21:53 - History of Present Illness Initial Comments: 12/24/18 22:19 43 y/o M w R eye redness x1 days no anticoagulation meds Past History - Past Medical History Allergies/Adverse Reactions: Allergies Allergy/AdvReac Type Severity Reaction Status Date / Time Penicillins AdvReac Verified 11/29/18 01:55 Home Medications: Ambulatory Orders Oxycodone HCl/Acetaminophen [Percocet 5-325 mg Tablet] 1 tab PO Q6H PRN #4 tablet MDD 4 04/25/18 Clindamycin HCl 450 mg PO BID #14 capsule 05/05/18 Diclofenac Sodium 75 mg PO BID #20 tablet. 11/29/18 Asthma: Yes Cardiac Disorders: Yes (afib) COPD: No GI Disorders: Yes (gerd) Psychiatric Problems: Yes (SUICIDE ATTEMPT, PTSD) - Immunization History Immunization Up to Date: Yes - Suicide/Smoking/Psychosocial Hx Smoking History: Current some day smoker Have you smoked in the past 12 months: No Number of Cigarettes Smoked Daily: 7 Cigars Per Day: 0 Information on smoking cessation initiated: Yes 'Breaking Loose' booklet given: 04/13/16 Hx Alcohol Use: No Drug/Substance Use Hx: Yes (Marijuanna) Substance Use Type: Marijuana Review of Systems - Review of Systems HEENTM: Yes: See HPI *Physical Exam - Vital Signs Last Vital Signs Temp Pulse Resp BP Pulse Ox 98.2 F 77 20 110/70 100 12/24/18 21:56 12/24/18 21:56 12/24/18 21:56 12/24/18 21:56 12/24/18 21:56 - Physical Exam Comments: 12/24/18 22:19 R eye lateral subconjuntival hemorrhage *DC/Admit/Observation/Transfer Diagnosis at time of Disposition: Subconjunctival bleed - Discharge Dispostion Disposition: HOME Condition at time of disposition: Stable Decision to Admit order: No - Referrals Referrals: ON STAFF,NOT [Primary Care Provider] - Danial Hand MD [Staff Physician] - - Patient Instructions Printed Discharge Instructions: DI for Subconjunctival Hemorrhage Additional Instructions: Follow up with optomology in 1-2 days and return to the emergency room shous symptoms worsen - Post Discharge Activity
== END 2018-12-24 22:32 | disposition home or self-care (01) ==
LOC: JERFT 21:35
DX: H11.31 Conjunctival hemorrhage, right eye (principal); I48.91 Unspecified atrial fibrillation; F17.210 Nicotine dependence, cigarettes, uncomplicated; K21.9 Gastro-esophageal reflux disease without esophagitis; Z91.5 Personal history of self-harm
CPT/HCPCS: 99281-25

== ENCOUNTER 2019-01-26 01:20 | Emergency (ER) | payer OTHER ==
[2019-01-26 01:45] VITALS: BP 99/54; PULSE 68; TEMP 98.1; BMI 21.8
--- NOTE | 2019-01-26 01:48 | PDOC ---
Attending Attestation - Resident Resident Name: Jessica Johnson - ED Attending Attestation I have performed the following: I have examined & evaluated the patient, The case was reviewed & discussed with the resident, I agree w/resident's findings & plan - HPI HPI: 01/26/19 02:34 Pt comes with cough and bronchitis. Pt has no fever, but he is unable to eat and he is tachycardic and dehydrated and hypotensive. He will be hydrated and will be given a dose of zithromax IV. - Physicial Exam PE: 01/26/19 02:37 Pt has a tachy regular HR; lungs are clear, but patient has a dry cough. Abd soft NT ND. Pt has no leg swelling no ext swelling. - Medical Decision Making 01/26/19 02:38 Pt will be hydrated. We will check labs and send him home with [facility] for atypical pneumonia,.
[2019-01-26] MEDS ORDERED: SODIUM CHLORIDE 0.9% 500 ML INFUS.BAG IV ONE (02:02)
[2019-01-26] MEDS ORDERED: ALBUTEROL SO4 2.5/IPRATROPIUM 0.5 INH SOL 3 ML VIAL.NEB. NEB ONE ×3 (02:15→02:32)
--- NOTE | 2019-01-26 02:29 | PDOC ---
History of Present Illness - General Chief Complaint: Shortness of Breath Stated Complaint: DIFFICULTY BREATHING,COUGHING Time Seen by Provider: 01/26/19 01:29 - History of Present Illness Initial Comments: 01/26/19 02:22 43 y/o M hx of bronchitis, asthma, Afib not on rate control or anti-coagulation , presenting with increasing cough and shortness of breath. He has had cough productive of brownish sputum for the last one week accompanied by sensation of chest tightness when he coughs. He does not use oxygen at home. He denies any pain (chest or pleuritic).He denies any fevers, chills, diaphoresis, hemoptysis , hx of blood clots, previous hx of [place], hx of heart failure, nausea,vomiting, diarrhea or dysuria. 01/26/19 02:43 Past History - Past Medical History Allergies/Adverse Reactions: Allergies Allergy/AdvReac Type Severity Reaction Status Date / Time Penicillins AdvReac Verified 01/26/19 01:34 Home Medications: Ambulatory Orders Oxycodone HCl/Acetaminophen [Percocet 5-325 mg Tablet] 1 tab PO Q6H PRN #4 tablet MDD 4 04/25/18 Clindamycin HCl 450 mg PO BID #14 capsule 05/05/18 Diclofenac Sodium 75 mg PO BID #20 tablet. 11/29/18 Azithromycin [Zithromax Tri-Italo (3 DAYS) -] 500 mg PO DAILY #3 tablet 01/26/19 Asthma: Yes Cardiac Disorders: Yes (afib) COPD: No GI Disorders: Yes (gerd) Psychiatric Problems: Yes (SUICIDE ATTEMPT, PTSD) - Immunization History Immunization Up to Date: Yes - Suicide/Smoking/Psychosocial Hx Smoking History: Unknown if ever smoked Have you smoked in the past 12 months: No Number of Cigarettes Smoked Daily: 7 Cigars Per Day: 0 Information on smoking cessation initiated: No 'Breaking Loose' booklet given: 04/13/16 Hx Alcohol Use: No Drug/Substance Use Hx: No Substance Use Type: Marijuana Review of Systems - Review of Systems Constitutional: No: Chills, Diaphoresis, Fever HEENTM: No: Blurred Vision Respiratory: Yes: Symptoms reported Cardiac (ROS): Yes: Chest Tightness (when coughig) ABD/GI: No: Abdominal Distended, Blood Streaked Bowels : No: Burning, Dysuria Musculoskeletal: No: Back Pain Neurological: No: Headache *Physical Exam - Vital Signs Last Vital Signs Temp Pulse Resp BP Pulse Ox 98.1 F 68 24 H 99/54 L 97 01/26/19 01:34 01/26/19 01:34 01/26/19 01:34 01/26/19 01:34 01/26/19 01:34 - Physical Exam General Appearance: Yes: Nourished, Appropriately Dressed. No: Apparent Distress HEENT: positive: Normal Voice. negative: Scleral Icterus (R), Scleral Icterus ( L) Neck: positive: Trachea midline, Supple Respiratory/Chest: positive: Decreased Breath Sounds (right lower lobes). negative: Chest Tender, Respiratory Distress Cardiovascular: positive: Regular Rhythm, Regular Rate, S1, S2, Irregular. negative: Edema, JVD Gastrointestinal/Abdominal: positive: Normal Bowel Sounds, Soft. negative: Distended, Guarding, Rebound Musculoskeletal: positive: Normal Inspection. negative: CVA Tenderness Extremity: positive: Normal Capillary Refill, Normal Inspection, Normal Range of Motion. negative: Pedal Edema Integumentary: positive: Normal Color, Dry, Warm. negative: Cyanotic Neurologic: positive: Fully Oriented, Alert, Normal Mood/Affect, Normal Response ED Treatment Course - LABORATORY CBC & Chemistry Diagram: 01/26/19 02:25 01/26/19 02:25 - RADIOLOGY Radiology Studies Ordered: Category Date Time Status CXRPORT [CHEST X-RAY PORTABLE*] [RAD] Stat Radiology 01/26/19 02:01 Ordered Medical Decision Making - Medical Decision Making 01/26/19 02:29 43 y/o M hx of bronchitis, asthma, Afib not on rate control or anti-coagulation , presenting with increasing cough and shortness of breath cbc,cmp, ekg, troponin, bmp, duonebs, bnp *DC/Admit/Observation/Transfer Diagnosis at time of Disposition: Cough, Bronchitis - Discharge Dispostion Disposition: HOME Condition at time of disposition: Stable Decision to Admit order: No - Prescriptions Prescriptions: Azithromycin [Zithromax Tri-Italo (3 DAYS) -] 500 mg PO DAILY #3 tablet - Referrals - Patient Instructions Printed Discharge Instructions: Chronic Bronchitis, Cough Additional Instructions: Take all antibiotics as prescibed. If your cough increases in frequency and severity and/or you have increased shortness of breath call your doctor If you develop fever, chills, night sweats, malaise, and/or change in mental status call your doctor. Increase your activity as tolerated. Do not stay in bed all day. Please do not smoke. - Post Discharge Activity
[2019-01-26] MEDS ORDERED: AZITHROMYCIN IVPB 500 MG/250 ML BAG IVPB ONE (02:33)
[2019-01-26 03:23] LABS: BASO % 0.8 % (0-2.0); EOS % 2.7 % (0-4.5); HEMATOCRIT 43.8 % (35.4-49); LYMPH % 37.6 % (8-40); MCH 33.8 pg (25.7-33.7); MCHC 34.3 g/dl (32.0-35.9); MEAN CELL VOLUME 98.4 fl (80-96); MEAN PLT VOLUME 7.7 fl (7.5-11.1); MONO % 8.8 % (3.8-10.2); NEUT % 50.1 % (42.8-82.8); PLATELET COUNT 180 K/MM3 (134-434); RBC 4.46 M/mm3 (4.00-5.60); RDW 13.7 % (11.9-15.9); WHITE BLOOD COUNT 7.3 K/mm3 (4.0-10.0)
[2019-01-26 04:12] LABS: BLOOD UREA NITROGEN 13.8 mg/dL (7-18); CREATININE 0.8 mg/dL (0.55-1.3)
[2019-01-26 04:13] LABS: ALBUMIN 3.2 g/dl (3.4-5.0); BILIRUBIN,TOTAL 0.4 mg/dL (0.2-1); CALCIUM 8.5 mg/dL (8.5-10.1); TOT PROT 6.3 g/dl (6.4-8.2)
[2019-01-26 07:01] LABS: POTASSIUM 4.1 mmol/L (3.5-5.1)
--- NOTE | 2019-01-26 23:43 | EKG ---
Test Reason : Blood Pressure : / mmHG Vent. Rate : 088 BPM Atrial Rate : 227 BPM P-R Int : 000 ms QRS Dur : 114 ms QT Int : 364 ms P-R-T Axes : 000 074 079 degrees QTc Int : 440 ms ATRIAL FIBRILLATION ABNORMAL ECG WHEN COMPARED WITH ECG OF 22-APR-1998 23:06, ATRIAL FIBRILLATION HAS REPLACED SINUS RHYTHM VENT. RATE HAS INCREASED BY 31 BPM NONSPECIFIC T WAVE ABNORMALITY NOW EVIDENT IN LATERAL LEADS QT HAS LENGTHENED Confirmed by ADRIA MILES MD ([id number]) on 01/26/2019 11:43:03 PM Referred By: Confirmed By:ADRIA MILES MD
== END 2019-01-26 04:50 | disposition home or self-care (01) ==
LOC: JER 01:20
PROC: 3E0F7GC Introduction of Other Therapeutic Substance into Respiratory Tract, Via Natural or Artificial Opening (ICD-10-PCS; principal; 2019-01-26)
PROC: 3E0F7GC Introduction of Other Therapeutic Substance into Respiratory Tract, Via Natural or Artificial Opening (ICD-10-PCS; 2019-01-26)
DX: J40 Bronchitis, not specified as acute or chronic (principal); J45.909 Unspecified asthma, uncomplicated; I48.91 Unspecified atrial fibrillation; K21.9 Gastro-esophageal reflux disease without esophagitis
CPT/HCPCS: 36415; 71045-TC-FY; 80053; 83880; 84484; 85025; 93005; 93010; 94640; 99282-25

== ENCOUNTER 2019-03-22 11:24 | Emergency (ER) | payer OTHER ==
[2019-03-22 11:41] VITALS: BP 113/77; PULSE 72; TEMP 98.3; BMI 23.1
--- NOTE | 2019-03-22 12:07 | PDOC ---
History of Present Illness - General Chief Complaint: Cold Symptoms Stated Complaint: COLD SYMPTOMS Time Seen by Provider: 03/22/19 11:41 History Source: Patient Exam Limitations: No Limitations - History of Present Illness Initial Comments: 03/22/19 12:12 HISTORY OF PRESENT ILLNESS: This a 43-year-old male past medical history of chronic bronchitis presents to the emergency department for evaluation of moist productive cough over the past 4 days. Patient reports every year at this time he develops an acute on chronic bronchitis and is requesting antibiotics. Patient denies any fevers or shortness of breath. Patient does complain of a postnasal drip. No recent travel or sick contacts. PAST MEDICAL HISTORY: Denies past medical history SURGICAL HISTORY: Denies ALLERGIES: Penicillin REVIEW OF SYSTEMS General/Constitutional: Denies weakness, weight change. HEENT: Denies change in vision. Denies ear pain or discharge. Postnasal drip. Cardiovascular: Denies chest pain or shortness of breath. Respiratory: Moist productive cough. Denies wheezing, or hemoptysis. Gastrointestinal: Denies nausea, vomiting, diarrhea or constipation. Denies rectal bleeding. Genitourinary: Denies dysuria, frequency, or change in urination. Musculoskeletal: Denies neck or back pain. Skin and breasts: Denies rash or easy bruising. Neurologic: Denies headache, vertigo, loss of consciousness, or loss of sensation. Psychiatric: Denies depression or anxiety. Endocrine: Denies increased thirst. Denies abnormal weight change. Hematologic/Lymphatic: Denies anemia, easy bleeding, or history of blood clots. Allergic/Immunologic: Denies hives or skin allergy. Denies latex allergy. PHYSICAL EXAM General Appearance: Well-appearing, appropriately dressed. No apparent distress , no intoxication. HEENT: EOMI, PERRLA, normal voice, TMs retracted bilaterally. No conjunctival pallor. No photophobia, scleral icterus. Oropharynx erythematous without lesions or exudate. Cobblestoning noted in the posterior. No nasal discharge present. Neck: Supple. Trachea midline. No tenderness, rigidity, carotid bruit, stridor , or thyromegaly. Nontender anterior cervical lymphadenopathy present. Respiratory/Chest: Lungs CTAB. No shortness of breath, chest tenderness, respiratory distress, accessory muscle use. No crackles, rales, rhonchi, stridor , wheezing, dullness Cardiovascular: RRR. S1, S2. No JVD, murmur, bradycardia, tachycardia. Vascular Pulses: Dorsalis-Pedis (R): 2+, Dorsalis-Pedis (L): 2+ Gastrointestinal/Abdominal: Normal bowel sounds. Abdomen soft, non-distended. No tenderness or rebound tenderness. No organomegaly, pulsatile mass, guarding, hernia, hepatomegaly, splenomegaly. Musculoskeletal/Extremities: Normal inspection. FROM of all extremities, normal capillary refill. Pelvis Stable. No CVA tenderness. No tenderness to extremities, pedal edema, swelling, erythema or deformity. Integumentary: Appropriate color, dry, warm. No cyanosis, erythema, jaundice or rash Neurologic: legal process specialist II-XII intact. Fully oriented, alert. Appropriate mood/affect. Motor strength 5/5. No appreciable EOM palsy, facial droop or sensory deficit. Past History - Past Medical History Allergies/Adverse Reactions: Allergies Allergy/AdvReac Type Severity Reaction Status Date / Time Penicillins AdvReac Verified 03/22/19 11:32 Home Medications: Ambulatory Orders Azithromycin [Zithromax 250mg Tablets -] 250 mg PO UTDICT #6 tab 03/22/19 Asthma: Yes Cardiac Disorders: Yes (afib) COPD: No GI Disorders: Yes (gerd) Psychiatric Problems: Yes (SUICIDE ATTEMPT, PTSD) - Immunization History Immunization Up to Date: Yes - Psycho Social/Smoking Cessation Hx Smoking History: Current every day smoker Have you smoked in the past 12 months: No Number of Cigarettes Smoked Daily: 20 Cigars Per Day: 0 Information on smoking cessation initiated: No 'Breaking Loose' booklet given: 04/13/16 Hx Alcohol Use: No Drug/Substance Use Hx: No Substance Use Type: Marijuana *Physical Exam - Vital Signs Last Vital Signs Temp Pulse Resp BP Pulse Ox 98.3 F 72 16 113/77 98 03/22/19 11:32 03/22/19 11:32 03/22/19 11:32 03/22/19 11:32 03/22/19 11:32 Medical Decision Making - Medical Decision Making 03/22/19 12:03 A/P: 43-year-old male history of bronchitis with upper respiratory symptoms for the past 4 days Given patient's history of chronic bronchitis is outside the window for influenza testing I will treat with upper respiratory infection and add azithromycin to treat bronchitis. Patient is aware that there is likely a viral illness and the antibiotic will not work but as box will be prescribed anyway. I discussed the physical exam findings, ancillary test results and final diagnoses with the patient. I answered all of the patient's questions. The patient was satisfied with the care received and felt comfortable with the discharge plan and treatment plan. The patient will call their primary care physician within 24 hours to arrange follow-up and will return to the Emergency Department with any new, persistent or worsening symptoms. Discharge - Discharge Information Problems reviewed: Yes Clinical Impression/Diagnosis: Bronchitis Condition: Fair Disposition: HOME - Admission No - Additional Discharge Information Prescriptions: Azithromycin [Zithromax 250mg Tablets -] 250 mg PO UTDICT #6 tab - Follow up/Referral - Patient Discharge Instructions Patient Printed Discharge Instructions: DI for Acute Bronchitis Additional Instructions: Rest, drink lots of fluids: Teas, water, soups, Pedialyte Saltwater gargles Steamy showers/seem to face break up mucus Avoid contact with others until fevers and cough resolved Lots of handwashing and good hygiene Continue [id number] medications for symptomatic relief Tylenol or Motrin for fever and pain Followup with private physician in one to 2 days as needed Return to emergency department for worsened symptoms, fevers, dehydration - Post Discharge Activity
== END 2019-03-22 12:08 | disposition home or self-care (01) ==
LOC: JERFT 11:24
DX: J40 Bronchitis, not specified as acute or chronic (principal); F43.10 Post-traumatic stress disorder, unspecified; K21.9 Gastro-esophageal reflux disease without esophagitis; F17.210 Nicotine dependence, cigarettes, uncomplicated; T14.91XA Suicide attempt, initial encounter; I48.91 Unspecified atrial fibrillation; Z88.0 Allergy status to penicillin; Z59.0 Homelessness
CPT/HCPCS: 99281-25

== ENCOUNTER 2019-05-21 18:11 | Emergency (ER) | payer OTHER ==
[2019-05-21 19:05] VITALS: BP 112/67; PULSE 99; TEMP 97.8; BMI 23.7
--- NOTE | 2019-05-21 19:17 | PDOC ---
Rapid Medical Evaluation Time Seen by Provider: 05/21/19 19:01 Medical Evaluation: Allergies Allergy/AdvReac Type Severity Reaction Status Date / Time Penicillins AdvReac Verified 03/22/19 11:32 05/21/19 19:02 Pt c/o: fatigue, body aches, loss of appetite x 2 days, smoker Pt on brief exam: lcta, vss, Pt ordered for: none Pt to proceed to the ED Discharge Disposition - Diagnosis Fatigue - Referrals - Patient Instructions - Post Discharge Activity
--- NOTE | 2019-05-21 19:32 | PDOC ---
History of Present Illness - General Chief Complaint: Cold Symptoms Stated Complaint: COLD SYMPTOMS Time Seen by Provider: 05/21/19 19:01 - History of Present Illness Initial Comments: 05/21/19 19:29 43-year-old male with negative past medical history presents for evaluation of cough and general malaise for the last 3 days no systemic symptoms Past History - Past Medical History Allergies/Adverse Reactions: Allergies Allergy/AdvReac Type Severity Reaction Status Date / Time Penicillins AdvReac Verified 03/22/19 11:32 Home Medications: Ambulatory Orders Azithromycin [Zithromax 250mg Tablets -] 250 mg PO UTDICT #6 tab 03/22/19 Guaifenesin Dm [Mucinex Dm -] 1 tab PO BID #60 tab.er.12h 05/21/19 Asthma: Yes Cardiac Disorders: Yes (afib) COPD: No GI Disorders: Yes (gerd) Psychiatric Problems: Yes (SUICIDE ATTEMPT, PTSD) - Immunization History Immunization Up to Date: Yes - Psycho Social/Smoking Cessation Hx Smoking History: Never smoked Have you smoked in the past 12 months: No Number of Cigarettes Smoked Daily: 7 Cigars Per Day: 0 'Breaking Loose' booklet given: 04/13/16 Hx Alcohol Use: No Drug/Substance Use Hx: Yes (MARIJUANA) Substance Use Type: Marijuana Review of Systems - Review of Systems Constitutional: No: Fever Respiratory: Yes: Cough *Physical Exam - Vital Signs Last Vital Signs Temp Pulse Resp BP Pulse Ox 97.8 F 99 H 17 112/67 100 05/21/19 19:03 05/21/19 19:03 05/21/19 19:03 05/21/19 19:03 05/21/19 19:03 - Physical Exam 05/21/19 19:30 GENERAL: The patient is awake, alert, and fully oriented, in no acute distress. HEAD: Normal with no signs of trauma. EYES: sclera anicteric, conjunctiva clear. ENT: Ears normal tympanic membranes normal oropharynx clear uvula midline NECK: Normal range of motion LUNGS: Breath sounds equal, clear to auscultation bilaterally. No wheezes, and no crackles. HEART: S1 and S2 without murmur, rub or gallop. ABDOMEN: Soft, nontender, normoactive bowel sounds. No guarding, no rebound. No masses. EXTREMITIES: Normal range of motion, no edema. No clubbing or cyanosis. No cords, erythema, or tenderness. NEUROLOGICAL: Cranial nerves II through XII grossly intact. Normal speech, normal gait. PSYCH: Normal mood, normal affect. SKIN: Warm, Dry, normal turgor, no rashes or lesions noted. Medical Decision Making - Medical Decision Making 05/21/19 19:30 Viral syndrome Mucinex for cough follow-up with PCP Discharge - Discharge Information Problems reviewed: Yes Clinical Impression/Diagnosis: Fatigue, Upper respiratory infection Condition: Stable Disposition: HOME - Admission No - Follow up/Referral Referrals: Rafita España MD [Staff Physician] - - Patient Discharge Instructions Patient Printed Discharge Instructions: DI for Viral Upper Respiratory Infection-Child Additional Instructions: Return to the emergency room for worsening symptoms and without fail follow-up with primary care physician in 1 to 2 days for further evaluation and treatment options Mucinex for cough. - Post Discharge Activity
== END 2019-05-21 19:37 | disposition home or self-care (01) ==
LOC: JERFT 18:11
DX: J06.9 Acute upper respiratory infection, unspecified (principal); B34.9 Viral infection, unspecified; R53.83 Other fatigue; Z88.0 Allergy status to penicillin; Z87.09 Personal history of other diseases of the respiratory system; Z87.19 Personal history of other diseases of the digestive system; Z86.79 Personal history of other diseases of the circulatory system
CPT/HCPCS: 99281-25

== ENCOUNTER 2019-06-17 11:24 | Emergency (ER) | payer OTHER ==
[2019-06-17 11:48] VITALS: BP 105/72; PULSE 89; TEMP 98.2; BMI 23.1
[2019-06-17] MEDS ORDERED: KETOROLAC TROMETHAMINE 60 MG/2 ML VIAL IM ONE (11:58)
[2019-06-17] MEDS ORDERED: KETOROLAC TROMETHAMINE 60 MG/2 ML VIAL ONE (12:01)
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
== END 2019-06-17 12:06 | disposition home or self-care (01) ==
LOC: JERFT 11:24
PROC: 3E0233Z Introduction of Anti-inflammatory into Muscle, Percutaneous Approach (ICD-10-PCS; principal; 2019-06-17)
DX: S39.012A Strain of muscle, fascia and tendon of lower back, initial encounter (principal); S70.12XA Contusion of left thigh, initial encounter; W22.8XXA Striking against or struck by other objects, initial encounter; Y93.E6 Activity, residential relocation; Y92.098 Other place in other non-institutional residence as the place of occurrence of the external cause; Y99.8 Other external cause status; Z88.0 Allergy status to penicillin; I48.91 Unspecified atrial fibrillation; K21.9 Gastro-esophageal reflux disease without esophagitis; Z87.09 Personal history of other diseases of the respiratory system; Z86.59 Personal history of other mental and behavioral disorders
CPT/HCPCS: 96372; 99284-25

== ENCOUNTER 2019-07-18 17:31 | Emergency (ER) | payer OTHER ==
[2019-07-18 19:08] VITALS: BMI 23.1
--- NOTE | 2019-07-18 19:22 | PDOC ---
History of Present Illness - General Chief Complaint: Back Pain Stated Complaint: BACK PAIN Time Seen by Provider: 07/18/19 19:19 History Source: Patient Exam Limitations: No Limitations - History of Present Illness Initial Comments: 07/18/19 19:19 HPI: 44 yo M pmh Asthma, ?Afib, presenting with thoracic back pain s/p moving things with a friend. Patient reports he was moving boxes after lunch and twisted into a bad position with relatively sudden pain just inferior to his right scapula. States that it feels similar to the muscle spasm he experienced last month when helping a friend move. Pain worsens with deep breathing and certain motions. Denies any fevers, chill, nausea, vomiting, radiation. Patient has a chronic cough, denies worsening, lightheadedness, dizziness, sputum production. Works in [id number] and requests to avoid narcotics. All: PCN Meds: Denies PMH: As above PSH: Tracheostomy Past History - Travel Traveled outside of the country in the last 30 days: No Close contact w/someone who was outside of country & ill: No - Past Medical History Allergies/Adverse Reactions: Allergies Allergy/AdvReac Type Severity Reaction Status Date / Time Penicillins AdvReac Verified 06/17/19 11:44 Home Medications: Ambulatory Orders Azithromycin [Zithromax 250mg Tablets -] 250 mg PO UTDICT #6 tab 03/22/19 Guaifenesin Dm [Mucinex Dm -] 1 tab PO BID #60 tab.er.12h 05/21/19 Cyclobenzaprine HCl [Flexeril 10 mg] 10 mg PO HS PRN #10 tablet 06/17/19 Ibuprofen [Motrin -] 600 mg PO TID #30 tablet 06/17/19 Cyclobenzaprine HCl [Flexeril -] 10 mg PO BID #20 tablet 07/18/19 Ibuprofen [Motrin -] 600 mg PO TID #30 tablet 07/18/19 Lidocaine 5% Patch [Lidoderm Patch -] 1 patch TP DAILY #7 patch 07/18/19 Asthma: Yes Cardiac Disorders: Yes (afib) COPD: No GI Disorders: Yes (gerd) Psychiatric Problems: Yes (SUICIDE ATTEMPT, PTSD) - Immunization History Immunization Up to Date: Yes - Psycho Social/Smoking Cessation Hx Smoking History: Current every day smoker Have you smoked in the past 12 months: Yes Number of Cigarettes Smoked Daily: 7 Cigars Per Day: 0 Information on smoking cessation initiated: No 'Breaking Loose' booklet given: 04/13/16 Hx Alcohol Use: No Drug/Substance Use Hx: [facility] Substance Use Type: Marijuana Review of Systems - Review of Systems Able to Perform ROS?: Yes Is the patient limited Chinese proficient: Yes Constitutional: No: Chills, Fever HEENTM: No: Nose Congestion, Throat Pain Respiratory: Yes: Cough (chronic). No: Shortness of Breath, Wheezing, Productive cough, Hemoptysis Cardiac (ROS): No: Chest Pain, Irregular Heart Rate, Chest Tightness ABD/GI: No: Constipated, Diarrhea, Nausea, Vomiting : No: Burning, Dysuria, Frequency Musculoskeletal: Yes: See HPI, Back Pain, Muscle Pain. No: Muscle Weakness, Neck Pain Integumentary: No: Bruising, Erythema, Pruritus, Rash Neurological: No: Headache, Numbness, Tingling, Weakness Psychiatric: No: Stressors, Change in Appetite Endocrine: No: Increased Thirst, Increased Urine Hematologic/Lymphatic: No: Anemia, Blood Clots, Easy Bleeding All Other Systems: Reviewed and Negative *Physical Exam - Vital Signs Last Vital Signs Temp Pulse Resp BP Pulse Ox 98.9 F 107 H 18 92/65 96 07/18/19 18:30 07/18/19 18:30 07/18/19 18:30 07/18/19 18:30 07/18/19 18:30 - Physical Exam 07/18/19 20:14 Vitals reviewed, AFVSS GEN: Well appearing, appears stated age, NAD, comfortable. AAOx3. HEENT: NCAT, EOMI, PERRL. Sclera anicteric, noninjected. No facial asymmetry. Moist mucous membranes. Normal voice. Trachea midline. CV: RRR, S1/S2, no murmurs / rubs / gallops appreciated. LUNG: CTAB, normal work of breathing. No wheezes, rales, rhonchi. No cough. Speaking full sentences. GI: Soft, NTND, +BS, no guarding, no rebound. No masses. Neg CVAT b/l. EXTREMITIES: 2+ distal pulses. No LE edema. No obvious deformities of all extremities. BACK: Tense para-spinal muscle on the right inferior to the scapula, no ecchymosis, normal ROM, TTP, no midline spine tenderness SKIN: Warm, dry, no rashes appreciated, non-jaundiced. PSYCH: Normal mood and affect. Cooperative and appropriate. NEURO: CN grossly intact. Moving all extremities well. Normal strength and sensation grossly. Medical Decision Making - Medical Decision Making 07/18/19 20:08 44 yo M pmh Asthma, ?Afib, presenting with thoracic back pain s/p moving things with a friend. History and exam c/w muscle spasm. - Flexuril - Toradol - Lidocaine patch 07/18/19 20:33 Patient reports feeling significantly improved s/p medication. Return precautions discussed. Prescriptions sent to pharmacy. Discharge - Discharge Information Problems reviewed: Yes Clinical Impression/Diagnosis: Back muscle spasm Condition: Improved Disposition: HOME - Admission No - Additional Discharge Information Prescriptions: Cyclobenzaprine HCl [Flexeril -] 10 mg PO BID #20 tablet Lidocaine 5% Patch [Lidoderm Patch -] 1 patch TP DAILY #7 patch Ibuprofen [Motrin -] 600 mg PO TID #30 tablet - Follow up/Referral Referrals: [facility] [place] [facility] [place] [Provider Group] - Patient Discharge Instructions Patient Printed Discharge Instructions: DI for Muscle Spasm Additional Instructions: You were seen and evaluated for back pain and were diagnosed with a muscle spasm. You were sent a muscle relaxant, Motrin, and Lidoderm patches to your pharmacy. Take these as directed. Do not drive or operate heavy machinery while using muscle relaxants. Please follow up with your primary care doctor in 3-5 days if symptoms persist. Return to the ED for any new or concerning symptoms. - Post Discharge Activity Work/Back to School Note: Back to Work
[2019-07-18] MEDS ORDERED: KETOROLAC TROMETHAMINE 30 MG/1 ML VIAL IM ONE (19:43)
[2019-07-18] MEDS ORDERED: LIDOCAINE 5% TOPICAL PATCH TP ONE (19:50)
[2019-07-18] MEDS ORDERED: CYCLOBENZAPRINE HCL 10 MG TABLET (FP) PO ONE (19:51)
[2019-07-18] MEDS ORDERED: LIDOCAINE 5% TOPICAL PATCH ONE (20:10)
[2019-07-18] MEDS ORDERED: CYCLOBENZAPRINE HCL 10 MG TABLET (FP) ONE (20:10)
[2019-07-18] MEDS ORDERED: KETOROLAC TROMETHAMINE 30 MG/1 ML VIAL ONE (20:11)
[2019-07-18] MEDS ORDERED: DIPHTH,PERTUSS(ACELL),TET 0.5 ML DISP.SYRIN IM ONE (20:32)
[2019-07-18] MEDS ORDERED: ACETAMINOPHEN 325 MG TABLET (FP) ONE (20:32)
[2019-07-18 20:45] VITALS: BP 111/80; PULSE 90; TEMP 99.3
--- NOTE | 2019-07-18 21:12 | PDOC ---
Attending Attestation - Resident Resident Name: Fam Andrews - ED Attending Attestation I have performed the following: I have examined & evaluated the patient, The case was reviewed & discussed with the resident, I agree w/resident's findings & plan, Exceptions are as noted - HPI HPI: 07/18/19 21:11 See resident HPI - Physicial Exam PE: 07/18/19 21:11 Agree with documented exam - Medical Decision Making 07/18/19 21:11 44M with likely msk back pain, no signs/symptoms of neurologic injury, no s/sx of infection analgesia re-eval pt reports improvement of symptoms dc home Discharge - Discharge Information Problems reviewed: Yes Clinical Impression/Diagnosis: Back muscle spasm Condition: Improved Disposition: HOME - Additional Discharge Information Prescriptions: Cyclobenzaprine HCl [Flexeril -] 10 mg PO BID #20 tablet Lidocaine 5% Patch [Lidoderm Patch -] 1 patch TP DAILY #7 patch Ibuprofen [Motrin -] 600 mg PO TID #30 tablet - Follow up/Referral Referrals: [facility] [place] [facility] [place] [Provider Group] - Patient Discharge Instructions Patient Printed Discharge Instructions: DI for Muscle Spasm Additional Instructions: You were seen and evaluated for back pain and were diagnosed with a muscle spasm. You were sent a muscle relaxant, Motrin, and Lidoderm patches to your pharmacy. Take these as directed. Do not drive or operate heavy machinery while using muscle relaxants. Please follow up with your primary care doctor in 3-5 days if symptoms persist. Return to the ED for any new or concerning symptoms. - Post Discharge Activity Work/Back to School Note: Back to Work
[2019-07-18] MEDS ORDERED: LIDOCAINE PATCH REMOVAL MC SCH (22:00)
== END 2019-07-18 20:45 | disposition home or self-care (01) ==
LOC: JER 17:31
PROC: 3E0233Z Introduction of Anti-inflammatory into Muscle, Percutaneous Approach (ICD-10-PCS; principal; 2019-07-18)
DX: M62.830 Muscle spasm of back (principal); J45.909 Unspecified asthma, uncomplicated; I48.91 Unspecified atrial fibrillation; Z87.19 Personal history of other diseases of the digestive system; Z86.59 Personal history of other mental and behavioral disorders; Z91.5 Personal history of self-harm
CPT/HCPCS: 99284-25

== ENCOUNTER 2019-11-16 21:11 | Emergency (ER) | payer OTHER ==
[2019-11-16 21:29] VITALS: BMI 23.8
[2019-11-16] MEDS ORDERED: ACETAMINOPHEN 500 MG TABLET (FP) PO ONE (22:31)
[2019-11-16] MEDS ORDERED: AZITHROMYCIN 500 MG TABLET PO ONE (22:31)
[2019-11-16] MEDS ORDERED: ACETAMINOPHEN 325 MG TABLET (FP) ONE ×2 (22:35→22:36)
[2019-11-16] MEDS ORDERED: AZITHROMYCIN 250 MG TABLET ONE (22:36)
--- NOTE | 2019-11-16 22:46 | PDOC ---
Documentation entered by Benigno Land SCRIBE, acting as scribe for Bimal Robertson MD. Bimal Robertson MD: This documentation has been prepared by the Emery bustamante Xhesika, SCRIBE, under my direction and personally reviewed by me in its entirety. I confirm that the documentation accurately reflects all work, treatment, procedures, and medical decision making performed by me. Attending Attestation - Resident Resident Name: Maribell Morales - ED Attending Attestation I have performed the following: I have examined & evaluated the patient, The case was reviewed & discussed with the resident, I agree w/resident's findings & plan, Exceptions are as noted - HPI HPI: 11/16/19 22:26 The patient is a 44y/o M with a PMH of asthma, ?Afib who presents to the ED with L groin pain x 3-4 days. Pt reports smoking and has been coughing up productive, yellow sputum, progressively getting worse. 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 Pt denies taking any medications. Allergies: Penicillins - Physicial Exam PE: 11/16/19 22:43 EXAMINATION CONSTITUTIONAL: Well-appearing; well-nourished; in no apparent distress HEAD: Normocephalic; atraumatic EYES: PERRL; EOM intact ENMT: External appears normal; NECK: Supple; non-tender; CARD: Normal S1, S2; no murmurs, rubs, or gallops RESP: Normal chest excursion with respiration; breath sounds clear and equal bilaterally; no wheezes, rhonchi, or rales ABD: Soft, non-distended; non-tender; no palpable organomegaly, +Left indirect inguinal hernia (easily reducible) EXT: Normal ROM in all four extremities; non-tender to palpation; + Small left infrapatellar effusion, nontender to palpation, anterior/posterior drawers are negative; Farzana's is negative; no laxity with valgus/valgus; distal pulses intact SKIN: Warm, dry, no rash NEURO: No focal neurological deficiencies. - Medical Decision Making 11/16/19 22:44 Patient is well-appearing 44-year-old male with history of chronic bronchitis, heavy smoking who presents with cough productive of purulent sputum, mild left inguinal discomfort without associated nausea vomiting and atraumatic left knee swelling. Chest x-ray reveals no evidence of infiltrate or effusion. I suspect acute bronchitis in a heavy smoker. Will treat with azithromycin p.o. and albuterol MDI. Left inguinal pain is related to a small, easily reducible indirect hernia. Will refer to outpatient surgery. Left knee swelling is likely related to mild arthritis without evidence of acute infection. Will advise icing and NSAIDs with outpatient orthopedic follow-up. Discharge - Discharge Information Problems reviewed: Yes Clinical Impression/Diagnosis: Left inguinal hernia, Bronchitis Left knee pain Qualifiers: Chronicity: acute Qualified Code(s): M25.562 - Pain in left knee Condition: Stable Disposition: HOME - Additional Discharge Information Prescriptions: Azithromycin 250 mg PO DAILY #4 tablet Albuterol Sulfate Inhaler - [Ventolin HFA Inhaler -] 1 - 2 inh PO QID #1 inhaler - Follow up/Referral Referrals: Aj Dc MD [Staff Physician] - Sunny Lam MD [Staff Physician] - Andrea Gilbert MD [Staff Physician] - - Patient Discharge Instructions Patient Printed Discharge Instructions: DI for Groin Hernia, DI for Acute Bronchitis Additional Instructions: Additional Instructions: Please return to the emergency department with any new or worsening symptoms or concerns. A referral for primary care doctor has been sent; you will receive a call within 3-5days. Please schedule appointment with orthopedics and general surgery for further evaluation of hernia and knee pain Please take Azithromycin 250mg daily for 4 days. Please take albuterol inhaler 1-2 puffs every 4-6hrs as needed - Post Discharge Activity
--- NOTE | 2019-11-16 22:46 | PDOC ---
History of Present Illness - General Chief Complaint: Pain Stated Complaint: PELVIC PAIN Time Seen by Provider: 11/16/19 21:33 - History of Present Illness Initial Comments: 11/16/19 22:41 HPI: 44 y/o M with hx of asthma and Afib not on AC presenting with multiple complaints including cough, left knee pain, left inguinal pain. Most concerning today is the left inguinal pain. He feels it x3-4days and worse when walking and feels like a pulled muscle; denies mass or bulge; has not taken any meds; no alleviating factors; pain is intermittent. He also reports worsening chonic cough now with productive yellow sputum x2-3weeks. He denies SOB, chest pain, palp, LH, DONG. 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 Denies fever, chills, diffciulty with ROM PMHx: as noted above ROS: as noted SHx: +tobacco use; no alcohol use; +MJ rec drugs Allergies: NKDA ROS: GENERAL/CONSTITUTIONAL: No fever or chills. No weakness. HEAD, EYES, EARS, NOSE AND THROAT: No change in vision. No ear pain or disc harge. No sore throat. CARDIOVASCULAR: No chest pain or shortness of breath RESPIRATORY: +cough; no wheezing, or hemoptysis. GASTROINTESTINAL: No nausea, vomiting, diarrhea or constipation. GENITOURINARY: No dysuria, frequency, or change in urination. MUSCULOSKELETAL: +left knee pain. SKIN: No rash NEUROLOGIC: No headache, vertigo, loss of consciousness, or change in strength/sensation. ENDOCRINE: No increased thirst. No abnormal weight change HEMATOLOGIC/LYMPHATIC: No anemia, easy bleeding, or history of blood clots. ALLERGIC/IMMUNOLOGIC: No hives or skin allergy. PE: GENERAL: Awake, alert, and fully oriented, no acute distress HEAD: No signs of trauma, normocephalic, atraumatic EYES: EOMI, sclera anicteric, conjunctiva clear ENT: Auricles normal inspection, hearing grossly normal, nares patent, oropharynx clear without exudates. Moist mucosa NECK: Normal ROM, no lymphadenopathy LUNGS: No increased work of breathing, symmetrical chest rise, clear to auscultation bilaterally, no wheezes, crackles or rhonchi HEART: Regular rate, regular rhythm, normal S1 and S2, no murmur, peripheral pulses 2+ and equal bilaterally. ABDOMEN: Soft, nondistended, nontender. No guarding, no rebound. No masses. No CVAT : left inguinal indirect reducible hernia, no extension into the scrotum MUSCULOSKELETAL: FROM, left infrapatellar edema with mild ttp but otherwise FROM NEUROLOGICAL: Cranial nerves II through XII grossly intact. Normal speech, stable gait, no focal sensorimotor deficits SKIN: Warm, Dry, normal turgor, no rashes or lesions noted Past History - Medical History Allergies/Adverse Reactions: Allergies Allergy/AdvReac Type Severity Reaction Status Date / Time Penicillins AdvReac Mild Verified 11/16/19 21:27 Home Medications: Ambulatory Orders Azithromycin [Zithromax 250mg Tablets -] 250 mg PO UTDICT #6 tab 03/22/19 Guaifenesin Dm [Mucinex Dm -] 1 tab PO BID #60 tab.er.12h 05/21/19 Cyclobenzaprine HCl [Flexeril 10 mg] 10 mg PO HS PRN #10 tablet 06/17/19 Ibuprofen [Motrin -] 600 mg PO TID #30 tablet 06/17/19 Cyclobenzaprine HCl [Flexeril -] 10 mg PO BID #20 tablet 07/18/19 Ibuprofen [Motrin -] 600 mg PO TID #30 tablet 07/18/19 Lidocaine 5% Patch [Lidoderm Patch -] 1 patch TP DAILY #7 patch 07/18/19 Azithromycin [Zithromax Tri-Italo (3 DAYS) -] 500 mg PO DAILY #3 tablet 07/22/19 Albuterol Sulfate Inhaler - [Ventolin HFA Inhaler -] 1 - 2 inh PO QID #1 inhaler 11/16/19 Azithromycin 250 mg PO DAILY #4 tablet 11/16/19 Asthma: Yes Cardiac Disorders: Yes (afib) COPD: No GI Disorders: Yes (gerd) Psychiatric Problems: Yes (SUICIDE ATTEMPT, PTSD) - Immunization History Immunization Up to Date: Yes - Psycho-Social/Smoking History Smoking History: Current every day smoker Have you smoked in the past 12 months: Yes Number of Cigarettes Smoked Daily: 20 Cigars Per Day: 0 Information on smoking cessation initiated: Yes 'Breaking Loose' booklet given: 04/13/16 - Substance Abuse Hx (Audit-C & DAST Scrn) How often the patient has a drink containing alcohol: Never Score: In Men: 4 or > Positive; In Women: 3 or > Positive: 0 Screen Result (Pos requires Nsg. Audit-10AR): Negative *Physical Exam - Vital Signs Last Vital Signs Temp Pulse Resp BP Pulse Ox 99.7 F H 70 18 115/72 97 11/16/19 21:22 11/16/19 21:22 11/16/19 21:22 11/16/19 21:22 11/16/19 21:22 ED Treatment Course - RADIOLOGY Radiology Studies Ordered: Category Date Time Status CHEST PA & LAT [RAD] Stat Radiology 11/16/19 21:44 Taken Medical Decision Making - Medical Decision Making 11/17/19 06:05 44 y/o M with hx of asthma and Afib not on AC presenting with multiple complaints including cough, left knee pain, left inguinal pain. Most concerning today is the left inguinal pain. VSS, AF. PE with infraptaellar edema and left inguinal reducible hernia -CXR 11/17/19 06:05 CXR with no acute pathology will give azithro 500mg DC with 250mg zithro x4 days referral to ortho and gen surg patient agreeable and all questions asnwered Discharge - Discharge Information Problems reviewed: Yes Clinical Impression/Diagnosis: Left inguinal hernia, Bronchitis Left knee pain Qualifiers: Chronicity: acute Qualified Code(s): M25.562 - Pain in left knee Condition: Stable Disposition: HOME - Additional Discharge Information Prescriptions: Azithromycin 250 mg PO DAILY #4 tablet Albuterol Sulfate Inhaler - [Ventolin HFA Inhaler -] 1 - 2 inh PO QID #1 inhaler - Follow up/Referral Referrals: Aj Dc MD [Staff Physician] - Sunny Lam MD [Staff Physician] - Andrea Gilbert MD [Staff Physician] - - Patient Discharge Instructions Patient Printed Discharge Instructions: DI for Groin Hernia, DI for Acute Bronchitis Additional Instructions: Additional Instructions: Please return to the emergency department with any new or worsening symptoms or concerns. A referral for primary care doctor has been sent; you will receive a call within 3-5days. Please schedule appointment with orthopedics and general surgery for further evaluation of hernia and knee pain Please take Azithromycin 250mg daily for 4 days. Please take albuterol inhaler 1-2 puffs every 4-6hrs as needed - Post Discharge Activity
[2019-11-16 23:05] VITALS: BP 136/97; PULSE 97; TEMP 98.3
== END 2019-11-16 23:05 | disposition home or self-care (01) ==
LOC: JER 21:11
DX: J40 Bronchitis, not specified as acute or chronic (principal); K40.90 Unilateral inguinal hernia, without obstruction or gangrene, not specified as recurrent; M25.562 Pain in left knee
CPT/HCPCS: 71046-TC-FY; 99283-25

== ENCOUNTER 2020-02-22 21:41 | Emergency (ER) | payer OTHER ==
[2020-02-22 21:55] VITALS: BP 105/80; PULSE 90; TEMP 98.4; BMI 23.1
--- OUTSIDE RECORDS SUMMARY | 2020-02-22 22:03 | XMS ---
:1975 Author Organization [facility] Support Name Relationship Address Phone UE Unavailable Unavailable Unavailable SAIMA GIBSON FRIEND [address] [place] [address] Re-disclosure Warning The records that you are about to access may contain information from federally- assisted alcohol or drug abuse programs. If such information is present, then the following federally mandated warning applies: This information has been disclosed to you from records protected by federal confidentiality rules (42 CFR part 2). The federal rules prohibit you from making any further disclosure of this information unless further disclosure is expressly permitted by the written consent of the person to whom it pertains or as otherwise permitted by 42 CFR part 2. A general authorization for the release of medical or other information is NOT sufficient for this purpose. The Federal rules restrict any use of the information to criminally investigate or prosecute any alcohol or drug abuse patient.The records that you are about to access may contain highly sensitive health information, the redisclosure of which is protected by Article 27-F of the [facility] Public Health law. If you continue you may haveaccess to information: Regarding HIV / AIDS; Provided by facilities licensed or operated by the [facility] Office of Mental Health; or Provided by the [facility] Office for People With Developmental Disabilities. If such information is present, then the following [facility] mandated warning applies: This information has been disclosed to you from confidential records which are protected by state law. State law prohibits you from making any further disclosure of this information without the specific written consent of the person to whom it pertains, or as otherwise permitted by law. Any unauthorized further disclosure in violation of state law may result in a fine or assisted sentence or both. A general authorization for the release of medical or other information is NOT sufficient authorization for further disclosure. Insurance Providers Payer name Policy type Policy ID Covered Covered libertarian's Policy P iban / Coverage libertarian ID relationship to [facility] type [facility] [id number] HEALTH NON CAP Results ID Date Data Source [id number] 10/01/2019 12:00:00 AM EDT [facility] Name Value Range Interpretation Code Description Data Germaine rce(s) Supporting Document(s ) 2018-nCoV [facility] RNA XXX STACI+probe- Imp This lab was ordered by [facility] and reported by [facility]. ID Date Data Source [id number] 08/13/2019 12:00:00 AM EDT [facility] Name Value Range Interpretation Code Description Data Germaine rce(s) Supporting Document(s ) 2018-nCoV [facility] N XXX Ql STACI N2 This lab was ordered by [facility] and reported by [facility]. ID Date Data Source [id number] 07/22/2019 01:45:00 PM EDT [facility] Name Value Range Interpretation Code Description Data Germaine rce(s) Supporting Document(s ) NCOV [facility] RNA PNL XXX STACI+PROBE This lab was ordered by [facility] and reported by [facility]. Procedure
--- NOTE | 2020-02-22 22:31 | PDOC ---
History of Present Illness - General Chief Complaint: Respiratory Stated Complaint: SINUS PROBLEM Time Seen by Provider: 02/22/20 22:09 History Source: Patient Exam Limitations: No Limitations - History of Present Illness Initial Comments: 02/22/20 22:26 44-year-old male presents the emergency room with complaints of nasal congestion, sinus pressure, and myalgia x 3 days. Patient states smokes cigarettes on a daily basis and has frequent bronchitis. Is this a multiple visit Asthma Patient?: No Timing/Duration: reports: other Severity: reports: mild Possible Cause: Yes: occasional episodes Modifying Factors: worse with: coughing Associated Symptoms: reports: facial pain, nasal congestion, sinus infection. denies: cough Past History - Travel History Traveled outside of the country in the last 30 days: No Close contact w/someone who was outside of country & ill: No - Medical History Allergies/Adverse Reactions: Allergies Allergy/AdvReac Type Severity Reaction Status Date / Time Penicillins AdvReac Mild Verified 11/16/19 21:27 Home Medications: Ambulatory Orders Azithromycin [Zithromax 250mg Tablets -] 250 mg PO UTDICT #6 tab 03/22/19 Guaifenesin Dm [Mucinex Dm -] 1 tab PO BID #60 tab.er.12h 05/21/19 Cyclobenzaprine HCl [Flexeril 10 mg] 10 mg PO HS PRN #10 tablet 06/17/19 Ibuprofen [Motrin -] 600 mg PO TID #30 tablet 06/17/19 Cyclobenzaprine HCl [Flexeril -] 10 mg PO BID #20 tablet 07/18/19 Ibuprofen [Motrin -] 600 mg PO TID #30 tablet 07/18/19 Lidocaine 5% Patch [Lidoderm Patch -] 1 patch TP DAILY #7 patch 07/18/19 Azithromycin [Zithromax Tri-Italo (3 DAYS) -] 500 mg PO DAILY #3 tablet 07/22/19 Albuterol Sulfate Inhaler - [Ventolin HFA Inhaler -] 1 - 2 inh PO QID #1 inhaler 11/16/19 Azithromycin 250 mg PO DAILY #4 tablet 11/16/19 Amoxicillin/Potassium Clav [Augmentin 875-125 Tablet] 1 each PO BID #14 tablet 02/22/20 Asthma: Yes Cardiac Disorders: Yes (afib) COPD: No GI Disorders: Yes (gerd) Psychiatric Problems: Yes (SUICIDE ATTEMPT, PTSD) - Immunization History Immunization Up to Date: Yes - Psycho-Social/Smoking History Patient Lives Alone: Yes Lives with/in: lives alone Smoking History: Current every day smoker Have you smoked in the past 12 months: Yes Number of Cigarettes Smoked Daily: 5 Cigars Per Day: 0 Information on smoking cessation initiated: Yes 'Breaking Loose' booklet given: 04/13/16 - Substance Abuse Hx (Audit-C & DAST Scrn) How often the patient has a drink containing alcohol: Monthly or less Score: In Men: 4 or > Positive; In Women: 3 or > Positive: 1 Screen Result (Pos requires Nsg. Audit-10AR): Negative In the last yr the pt used illegal drug/Rx for NonMed reason: Yes Score: Yes response is considered Positive: 1 Screen Result (Positive result requires Nsg. DAST-10): Positive Review of Systems - Review of Systems Able to Perform ROS?: Yes Constitutional: Yes: Symptoms Reported, Weakness HEENTM: Yes: Nose Congestion, Other Respiratory: No: Symptoms reported Cardiac (ROS): No: Symptoms Reported ABD/GI: No: Symptoms Reported : No: Symptoms Reported Musculoskeletal: No: Symptoms Reported Integumentary: No: Symptoms Reported Neurological: No: Symptoms reported *Physical Exam - Vital Signs Last Vital Signs Temp Pulse Resp BP Pulse Ox 98.4 F 90 22 H 105/80 98 02/22/20 21:49 02/22/20 21:49 02/22/20 21:49 02/22/20 21:49 02/22/20 21:49 - Physical Exam General Appearance: Yes: Appropriately Dressed, Thin. No: Apparent Distress HEENT: positive: EOMI, MAXIM, TMs Normal, Pharynx Normal, Sinus Tenderness. negative: Pale Conjunctivae, Nasal Congestion, Rhinorrhea Neck: positive: Supple. negative: Lymphadenopathy (R), Lymphadenopathy (L) Respiratory/Chest: positive: Lungs Clear, Normal Breath Sounds. negative: Respiratory Distress, Accessory Muscle Use Cardiovascular: positive: Regular Rhythm, Regular Rate. negative: Murmur Gastrointestinal/Abdominal: positive: Soft. negative: Tenderness Integumentary: positive: Normal Color, Warm, Moist Neurologic: positive: Motor Strength 5/5 (ambulatory) Medical Decision Making - Medical Decision Making 02/22/20 22:29 chief complaint: Sinus pressure and weakness x3 days. Positive smoker history of bronchitis but denies shortness of breath or excessive coughing presently. Exam: Patient with sinus tenderness on exam otherwise normal. Plan: Covid swab sent discharge home with Augmentin if symptoms do not improve over the next 4 days Discharge - Discharge Information Problems reviewed: Yes Clinical Impression/Diagnosis: Sinus congestion Condition: Good Disposition: HOME - Additional Discharge Information Prescriptions: Amoxicillin/Potassium Clav [Augmentin 875-125 Tablet] 1 each PO BID #14 tablet - Follow up/Referral - Patient Discharge Instructions Patient Printed Discharge Instructions: DI for Sinusitis Additional Instructions: At this time if your symptoms do not improve over the next 4 to 5 days consider taking Augmentin which I have sent to the pharmacy. Otherwise keep nasal passages clear do not smoke. You will also be notified of your Covid results in the next day or 2. - Post Discharge Activity
== END 2020-02-22 22:50 | disposition home or self-care (01) ==
LOC: JERFT 21:41
DX: R09.81 Nasal congestion (principal)
CPT/HCPCS: 99284-25; C9803; U0003

== ENCOUNTER 2020-05-25 14:26 | Emergency (ER) | payer OTHER ==
[2020-05-25 14:39] VITALS: BP 124/67; PULSE 104; TEMP 98.3; BMI 20.5
== END 2020-05-25 17:00 | disposition home or self-care (01) ==
LOC: JERFT 14:26 → JER 14:26
DX: S02.2XXA Fracture of nasal bones, initial encounter for closed fracture (principal)
CPT/HCPCS: 70450-TC; 70486-TC; 99284-25

== ENCOUNTER 2020-07-27 06:38 | Emergency (ER) | payer OTHER ==
[2020-07-27 06:54] VITALS: BP 110/73; TEMP 98.1; BMI 21.8
[2020-07-27 08:27] LABS: BASO % 0.9 % (0-2.0); EOS % 2.2 % (0-4.5); HEMATOCRIT 43.2 % (35.4-49); HEMOGLOBIN 14.8 GM/dL (11.7-16.9); LYMPH % 24.6 % (8-40); MCH 33.5 pg (25.7-33.7); MCHC 34.2 g/dl (32.0-35.9); MEAN CELL VOLUME 97.9 fl (80-96); MEAN PLT VOLUME 7.5 fl (7.5-11.1); MONO % 15.9 % (3.8-10.2); NEUT % 56.4 % (42.8-82.8); PLATELET COUNT 140 K/MM3 (134-434); RBC 4.41 M/mm3 (4.00-5.60); RDW 13.5 % (11.9-15.9); WHITE BLOOD COUNT 5.1 K/mm3 (4.0-10.0)
[2020-07-27 08:54] LABS: CHLORIDE 108 mmol/L (98-107); POTASSIUM 3.7 mmol/L (3.5-5.1); SODIUM 141 mmol/L (136-145)
[2020-07-27 08:56] LABS: GLUCOSE,RANDOM 120 mg/dL (74-106)
[2020-07-27 08:57] LABS: ALBUMIN 3.5 g/dl (3.4-5.0); ANION GAP 5 MMOL/L (8-16); CALCIUM 8.3 mg/dL (8.5-10.1); CO2 27 mmol/L (21-32)
[2020-07-27 08:58] LABS: BLOOD UREA NITROGEN 15.2 mg/dL (7-18)
[2020-07-27 09:00] LABS: CREATININE 0.8 mg/dL (0.55-1.3); SGPT/ALT 18 U/L (13-61)
[2020-07-27 09:01] LABS: BILIRUBIN,TOTAL 0.3 mg/dL (0.2-1); SGOT/AST 16 U/L (15-37); TOT PROT 6.7 g/dl (6.4-8.2)
[2020-07-27 09:03] LABS: ALK PHOS 85 U/L (45-117)
[2020-07-27 10:21] VITALS: PULSE 99
== END 2020-07-27 10:38 | disposition home or self-care (01) ==
LOC: JER 06:38
DX: R06.02 Shortness of breath (principal); J45.21 Mild intermittent asthma with (acute) exacerbation; I48.21 Permanent atrial fibrillation
CPT/HCPCS: 36415; 71045-TC-FY; 80053; 82550; 83735; 84439; 84443; 84484; 85025; 93005; 93010; 99285-25

== ENCOUNTER 2021-03-08 20:25 | Emergency (ER) | payer OTHER ==
[2021-03-08] MEDS ORDERED: AZITHROMYCIN 250 MG TABLET PO ONE (20:30)
[2021-03-08] MEDS ORDERED: SODIUM CHLORIDE 1,000 ML IV ONE (20:30)
[2021-03-08] MEDS ORDERED: AZITHROMYCIN 250 MG TABLET ONE (20:34)
[2021-03-08 20:35] VITALS: BP 117/87; PULSE 103; TEMP 98.9; BMI 21.8
== END 2021-03-08 21:15 | disposition home or self-care (01) ==
LOC: FER 20:25
PROC: 3E0337Z Introduction of Electrolytic and Water Balance Substance into Peripheral Vein, Percutaneous Approach (ICD-10-PCS; principal; 2021-03-08)
DX: J01.90 Acute sinusitis, unspecified (principal)
CPT/HCPCS: 99284-25

== ENCOUNTER 2021-05-05 05:33 | Emergency (ER) | payer OTHER ==
[2021-05-05 06:13] VITALS: BP 118/89; PULSE 90; TEMP 98.3; BMI 21.8
[2021-05-07 02:07] LABS: SARS-CoV-2 NAA Not Detected (Not Detected)
== END 2021-05-05 06:29 | disposition home or self-care (01) ==
LOC: FER 05:33
DX: R09.81 Nasal congestion (principal); J06.9 Acute upper respiratory infection, unspecified
CPT/HCPCS: 99283-25; C9803-CS; U0003; U0005

== ENCOUNTER 2021-12-08 01:12 | Observation (INO) | payer OTHER ==
[2021-12-08 01:44] VITALS: TEMP 98.1; BMI 23.1
[2021-12-08] MEDS ORDERED: ALBUTEROL SO4 2.5/IPRATROPIUM 0.5 INH SOL 3 ML VIAL.NEB. NEB ONE ×2 (01:52→02:04)
[2021-12-08 01:55] LABS: BASO % 2.1 % (0-2.0); EOS % 2.6 % (0-4.5); HEMATOCRIT 45.7 % (35.4-49); HEMOGLOBIN 15.6 GM/dL (11.7-16.9); LYMPH % 41.1 % (8-40); MCHC 34.1 g/dl (32.0-35.9); MEAN CELL VOLUME 96.7 fl (80-96); MONO % 9.8 % (3.8-10.2); NEUT % 44.4 % (42.8-82.8); RBC 4.72 M/mm3 (4.00-5.60); RDW 13.5 % (11.9-15.9)
[2021-12-08 02:09] LABS: WHITE BLOOD COUNT 8.9 K/mm3 (4.0-10.0)
[2021-12-08 02:17] LABS: ALBUMIN 3.5 g/dl (3.4-5.0); BLOOD UREA NITROGEN 21.3 mg/dL (7-18)
[2021-12-08 02:20] LABS: CREATININE 0.9 mg/dL (0.55-1.3)
[2021-12-08 02:21] LABS: BILIRUBIN,TOTAL 0.4 mg/dL (0.2-1)
[2021-12-08 03:27] LABS: PLATELET COUNT 136.1 10^3/uL (134-434)
[2021-12-08 03:28] LABS: MEAN PLT VOLUME 10.9 fl (7.5-11.1)
[2021-12-08 05:54] VITALS: BP 116/71; PULSE 75; RESP 22
[2021-12-08] MEDS ORDERED: levETIRAcetam 500 MG TABLET (FP) PO STA (06:13)
[2021-12-08 06:16] LABS: BLOOD UREA NITROGEN 22.6 mg/dL (7-18); CALCIUM 8.5 mg/dL (8.5-10.1)
[2021-12-08 06:20] LABS: CREATININE 0.7 mg/dL (0.55-1.3)
[2021-12-08 08:41] LABS: MAGNESIUM 2.4 mg/dL (1.8-2.4); PHOSPHOROUS 4.6 mg/dL (2.5-4.9)
[2021-12-08] MEDS ORDERED: ENOXAPARIN NA (PORCINE) 40 MG/0.4 ML DISP.SYRIN SQ SCH (10:00)
[2021-12-08] MEDS ORDERED: levETIRAcetam 500 MG TABLET (FP) PO SCH (20:00)
== END 2021-12-08 09:30 | disposition left against medical advice (07) ==
LOC: JER 01:12 → JERBED 03:25
PROVIDERS: ADMIT Internal Medicine; ATTEND Internal Medicine
PROC: 3E0F7SF Introduction of Other Gas into Respiratory Tract, Via Natural or Artificial Opening (ICD-10-PCS; principal; 2021-12-08)
DX: R07.89 Other chest pain (principal); I48.91 Unspecified atrial fibrillation; J45.909 Unspecified asthma, uncomplicated; K21.9 Gastro-esophageal reflux disease without esophagitis; Z88.0 Allergy status to penicillin; Z91.51 Personal history of suicidal behavior
CPT/HCPCS: 36415; 71045-TC-FY; 80048; 80053; 80061; 83735; 84100; 84443; 84484; 85025; 93005; 93010; 99285-25; C9803-CS; G0378; U0003; U0005

== ENCOUNTER 2022-02-22 18:17 | Emergency (ER) | payer OTHER ==
[2022-02-22 18:27] VITALS: BP 126/81; PULSE 86; RESP 18; TEMP 98.2; BMI 23.1
[2022-02-22] MEDS ORDERED: KETOROLAC TROMETHAMINE 30 MG/1 ML VIAL IM ONE (19:08)
[2022-02-22] MEDS ORDERED: AMOX TR/POT CLAV 875MG/125MG TABLETS (FP) PO ONE (19:08)
[2022-02-22] MEDS ORDERED: KETOROLAC TROMETHAMINE 30 MG/1 ML VIAL ONE (19:18)
[2022-02-22] MEDS ORDERED: AMOX TR/POT CLAV 875MG/125MG TABLETS (FP) ONE (19:18)
== END 2022-02-22 19:35 | disposition home or self-care (01) ==
LOC: JER 18:17 → JERFT 18:17
PROC: 3E023GC Introduction of Other Therapeutic Substance into Muscle, Percutaneous Approach (ICD-10-PCS; principal; 2022-02-22)
DX: K04.7 Periapical abscess without sinus (principal)
CPT/HCPCS: 99284-25

== ENCOUNTER 2022-04-04 20:12 | Emergency (ER) | payer OTHER ==
[2022-04-04] MEDS ORDERED: ALBUTEROL SO4 2.5/IPRATROPIUM 0.5 INH SOL 3 ML VIAL.NEB. NEB STA (20:40)
[2022-04-04] MEDS ORDERED: AZITHROMYCIN 500 MG TABLET PO ONE (20:49)
[2022-04-04] MEDS ORDERED: ALBUTEROL SO4 2.5/IPRATROPIUM 0.5 INH SOL 3 ML VIAL.NEB. NEB ONE (20:49)
[2022-04-04] MEDS ORDERED: AZITHROMYCIN 250 MG TABLET ONE (20:54)
[2022-04-04 21:05] VITALS: BP 140/80; PULSE 75; RESP 18; TEMP 98.5; BMI 25.7
== END 2022-04-04 21:07 | disposition home or self-care (01) ==
LOC: FER 20:12
PROC: 3E0F7GC Introduction of Other Therapeutic Substance into Respiratory Tract, Via Natural or Artificial Opening (ICD-10-PCS; principal; 2022-04-04)
DX: J45.21 Mild intermittent asthma with (acute) exacerbation (principal)
CPT/HCPCS: 99283-25